=== PATIENT | male | born 1955 | race Caucasian/White ===

== ENCOUNTER 2017-03-07 08:10 | Day surgery (SDC) | payer MEDICARE, BC ==
[2017-03-05 13:47] VITALS: BMI 25.4
[~2017-03-07 08:10] MED LIST: LACTATED RINGERS 1,000 ML IV SCH; LIDOCAINE 1% 20 ML VIAL (10MG/ML) FOR IV START INTRADERMA PRN
[2017-03-07 08:21] VITALS: TEMP 98
[2017-03-07] MEDS ORDERED: LACTATED RINGERS 1,000 ML IV ONE (08:21)
[2017-03-07 08:27] LABS: Glucose,Whole Blood 92 mg/dL (75-99)
[2017-03-07] MEDS ORDERED: PROPOFOL 10 MG/ML 20 ML VIAL IV ONE (09:00)
--- NOTE | 2017-03-07 09:22 | P.PCN ---
Date of Procedure: 03/07/17 Procedure(s) Performed: BRIEF HISTORY: Patient is a 61-year-old pleasant white male, scheduled for an elective colonoscopy as a part of evaluation of chronic diarrhea for the last 8 months duration. He has bowel movements between 3-4 a day which are loose to watery in consistency. He denies any blood or mucus in the stool. PROCEDURE PERFORMED: Colonoscopy with biopsy. PREOPERATIVE DIAGNOSIS: Chronic diarrhea. IV sedation per Anesthesia. PROCEDURE: After informed consent was obtained, the patient, was brought into the endoscopy unit. IV sedation was administered by Anesthesia under continuous monitoring. Digital rectal examination was normal. Initially the Olympus CF- 160 flexible video colonoscope was then inserted in the rectum, gradually advanced into the cecum without any difficulty. Careful examination was performed as the scope was gradually being withdrawn. Ileocecal valve and the appendiceal orifice were visualized and appeared normal. Prep was excellent. Mucosa of the cecum, ascending colon, transverse colon, appeared normal. In the hepatic flexure there was a 5 mm polyp that was removed by biopsy. The rest of the descending colon, sigmoid colon, and rectum appeared normal. Random biopsies were done from the ascending and descending colon to rule out Preston scopic/collagenous colitis. Scattered sigmoid diverticulosis seen. Retroflexion was performed in the rectum and small internal hemorrhoids were seen. The patient tolerated the procedure well. IMPRESSION: 5 mm hepatic flexure polyp status post removal by biopsy. Scattered sigmoid diverticulosis. Small internal hemorrhoids RECOMMENDATIONS: Findings of this examination were discussed with the patient as well as his family. He was advised to follow with the biopsy results. He can have a repeat colonoscopy in 5 years. In the meantime he was advised to use [id number] Imodium as needed.
[2017-03-07 09:55] VITALS: BP 100/65; PULSE 67; RESP 18
== END 2017-03-07 10:11 | disposition home or self-care (01) ==
LOC: ORWHC2ENDO 08:10
PROVIDERS: ATTEND Internal Medicine Gastroenterology
DX: D12.3 Benign neoplasm of transverse colon (principal); R19.7 Diarrhea, unspecified; K57.30 Diverticulosis of large intestine without perforation or abscess without bleeding; K64.8 Other hemorrhoids; I10 Essential (primary) hypertension; E78.5 Hyperlipidemia, unspecified; I48.91 Unspecified atrial fibrillation; E11.9 Type 2 diabetes mellitus without complications; Z79.02 Long term (current) use of antithrombotics/antiplatelets; Z79.899 Other long term (current) drug therapy; Z79.84 Long term (current) use of oral hypoglycemic drugs
CPT/HCPCS: 45380; 88305; J2704

== ENCOUNTER 2017-03-28 08:31 | Day surgery (SDC) | payer MEDICARE, BC ==
[2017-03-23 11:01] VITALS: BMI 26.4
[~2017-03-28 08:31] MED LIST changes: +DEXAMETHASONE SOD PHOSPHATE 10 MG/ML 1 ML VIAL IV ONE; +DEXAMETHASONE SOD PHOSPHATE 4 MG/ML 1 ML VIAL IV ONE; +FAMOTIDINE 20 MG/2 ML VIAL IV ONE; +HYDROmorphone 0.5 MG/0.5 ML SYRINGE IVP PRN; -LIDOCAINE 1% 20 ML VIAL (10MG/ML) FOR IV START INTRADERMA PRN; +ONDANSETRON 4 MG/2 ML VIAL IVP ONE; +ceFAZolin 1,000 MG in DEXTROSE/WATER 1 50ML.BAG IV ONE
[2017-03-28] MEDS: OXYMETAZOLINE 0.05% NASL SPRAY 1 SPRAY BOTTLE NASAL ONE ×5 (09:37→09:59)
[2017-03-28 09:48] LABS: Glucose,Whole Blood 81 mg/dL (75-99)
[2017-03-28] MEDS: LACTATED RINGERS 1,000 ML IV SCH ×2 (09:55→10:34)
[2017-03-28] MEDS ORDERED: LIDOCAINE 1% 20 ML VIAL (10MG/ML) FOR IV START INTRADERMA ONE (09:55)
[2017-03-28] MEDS ORDERED: ONDANSETRON 4 MG/2 ML VIAL IVP ONE (10:09)
[2017-03-28] MEDS ORDERED: KETOROLAC 30 MG/ML 1 ML VIAL ONE (10:34)
[2017-03-28] MEDS ORDERED: SUCCINYLCHOLINE CHLORIDE 100 MG/5 ML SYR IV ONE (10:34)
[2017-03-28] MEDS ORDERED: PROPOFOL 10 MG/ML 20 ML VIAL IV ONE (10:34)
[2017-03-28] MEDS ORDERED: LIDOCAINE 1% INJ 10MG/ML (20 ML MDV) ONE (10:34)
[2017-03-28] MEDS ORDERED: fentaNYL (PF) 50 MCG/ML 2 ML AMP ONE (10:34)
[2017-03-28] MEDS ORDERED: MIDAZOLAM 2 MG/2 ML VIAL ONE (10:34)
[2017-03-28] MEDS ORDERED: LIDOCAINE 2%-EPI 1:100,000 20 ML VIAL SQ ONE ×2 (10:51)
[2017-03-28] MEDS ORDERED: BACITRACIN 500 UNIT/GM OINT 28.4 GM TUBE TOPICAL ONE (11:04)
--- NOTE | 2017-03-28 11:09 | P.OP ---
Date of Procedure: 03/28/17 Preoperative Diagnosis: Deviated nasal septum Inferior turbinate hypertrophy Postoperative Diagnosis: Same Procedure(s) Performed: Septoplasty Inferior turbinoplasty Anesthesia: KTA Surgeon: Ricardo Shelton Estimated Blood Loss (ml): 5 Pathology: other (nasal septal bone and cartilage) Condition: stable Disposition: PACU Indications for Procedure: This is a 61-year-old white male with chronic nasal airway obstruction and congestion Operative Findings: Nasal septum deviated to the right anteriorly and to the left posteriorly with inferior turbinate hypertrophy bilateral Description of Procedure: The patient was brought in the operative suite and placed in a supine position. The patient underwent induction of general anesthesia with oral endotracheal intubation without difficulty. The patient was prepped and draped in usual aseptic fashion. Lidocaine with 1-100,000 epinephrine was infused submucosally both sides nasal septum. While this was taking vasoconstrictive effect the inferior turbinates were infractured with Hooker elevator partial submucous resection inferior turbinates performed with the Coblation wand therefore ablating a portion of the submucosal soft tissue and then outfractured with the Hooker elevator. A left hemitransfixion incision was made with the mucoperichondrial mucoperiosteal flap on the left elevated. The bony cartilaginous junction was disarticulated and the mucoperiosteal flap on the right was elevated. Bony nasal septal deformities were removed Cally forceps. An inferior cartilaginous strip was removed leaving a full 1.5 cm caudal strut. Checking intranasally this corrected nasoseptal deformities and the hemitransfixion incision was closed running 4-0 chromic suture. Bilateral Pacheco airway splints coated bacitracin ointment were placed in nasal cavities and sutured trans- septally with a 4-0 Vicryl suture. Patient was suctioned in oral gastric fashion. The patient was allowed to emerge from general anesthesia having tolerated procedure well was excised in the operating suite and transferred to postop recovery area in satisfactory condition.
[2017-03-28 11:20] VITALS: TEMP 98
[2017-03-28 11:26] LABS: Glucose,Whole Blood 138 mg/dL (75-99)
[2017-03-28 11:31] VITALS: RESP 16
[2017-03-28] MEDS ORDERED: HYDROcodone/APAP 7.5-325MG 1 EACH TAB PO ONE (12:43)
[2017-03-28 13:31] VITALS: BP 155/82; PULSE 66
== END 2017-03-28 13:56 | disposition home or self-care (01) ==
LOC: OR 08:31
PROVIDERS: ATTEND Otolaryngology
DX: J34.2 Deviated nasal septum (principal); J34.3 Hypertrophy of nasal turbinates; E11.9 Type 2 diabetes mellitus without complications; I10 Essential (primary) hypertension; E78.5 Hyperlipidemia, unspecified; I48.91 Unspecified atrial fibrillation; K21.9 Gastro-esophageal reflux disease without esophagitis; Z79.2 Long term (current) use of antibiotics; Z79.01 Long term (current) use of anticoagulants; Z79.84 Long term (current) use of oral hypoglycemic drugs; Z79.899 Other long term (current) drug therapy; Z79.891 Long term (current) use of opiate analgesic
CPT/HCPCS: 88300; 30520; 30140; J2250; J1100; J2405; J2001; J3010; J1885; J0690; J0330; J2704

== ENCOUNTER → 2017-09-14 | Outpatient (CLI) | payer MEDICARE, BC ==
--- NOTE | 2017-09-15 14:18 | XR ---
EXAMINATION TYPE: XR chest 2V DATE OF EXAM: 09/14/2017 COMPARISON: 08/08/2011 HISTORY: 62-year-old male with chest pain TECHNIQUE: Frontal and lateral views FINDINGS: The cardiomediastinal silhouette, aorta, and pulmonary vasculature are within normal limits. Lungs an d pleural spaces are clear. IMPRESSION: No acute cardiopulmonary process.
== END | disposition home or self-care (01) ==
LOC: RADXRMAIN 15:53
PROVIDERS: ATTEND Family Medicine
DX: R07.9 Chest pain, unspecified (principal)
CPT/HCPCS: 71046

== ENCOUNTER → 2017-11-01 | Outpatient (CLI) | payer MEDICARE, BC ==
--- NOTE | 2017-11-01 14:10 | CT ---
EXAMINATION TYPE: CT brain w con DATE OF EXAM: 11/01/2017 COMPARISON: MRI brain September 04, 2014 HISTORY: Right sided tingling with shooting pains CT DLP: 1308 mGycm Automated exposure control for dose reduction was used. CONTRAST: CT scan of the head is performed with IV Contrast, patient injected with 100 mL of Isovue 300. FINDINGS: There is no abnormal enhancing mass or midline shift identified. The ventricles and sulci are within normal limits in size for patient's age. The globes are intact and the visualized sinuses are clear . IMPRESSION: No significant finding is seen to account for patient's symptoms.
--- NOTE | 2017-11-01 14:14 | CT ---
EXAMINATION TYPE: CT chest w con DATE OF EXAM: 11/01/2017 COMPARISON: NONE HISTORY: Left sided chest pain with cough CT DLP: 1127 mGycm. Automated Exposure Control for Dose Reduction was Utilized. TECHNIQUE: CT scan of the thorax is performed following with IV Contrast, patient injected with 100 mL of Isovue 300. FINDINGS: LUNGS: The lungs are grossly clear, there is no concerning parenchymal mass or nodule identified. T here is no pleural effusion or pneumothorax seen. The tracheobronchial tree is patent. MEDIASTINUM: There are no greater than 1 cm hilar or mediastinal lymph nodes. No pericardial effusi on is seen. Opacification of the central pulmonary artery does not demonstrate evidence of filling de fect to suggest central pulmonary embolus. Gmam-fv-cavkviki coronary calcifications are noted. OTHER: In addition to bilateral thickening and nodularity of the adrenal gland suggesting underlying adrenal gland hyperplasia there is a left-sided 2.0 cm adrenal gland nodule that is low-density and f itting of criteria for a benign lipid rich adenoma. Too small to accurately characterize right upper pole renal lesion measures approximately 5 to 6 mm and is partially visualized. IMPRESSION: 1. No focal consolidation, pleural effusion or pneumothorax. 2. Mild to moderate three-vessel coronary artery calcifications, a marker of coronary artery disease. 3. Benign left lipid rich adenoma and findings suggesting bilateral adrenal gland hyperplasia.
== END | disposition home or self-care (01) ==
LOC: RADCTMAIN 12:58
PROVIDERS: ATTEND Family Medicine
DX: I25.10 Atherosclerotic heart disease of native coronary artery without angina pectoris (principal); I69.011 Memory deficit following nontraumatic subarachnoid hemorrhage
CPT/HCPCS: 70460; 71260; Q9967

== ENCOUNTER → 2017-12-07 | Outpatient (CLI) | payer MEDICARE, BC ==
--- NOTE | 2017-12-11 10:56 | P.ARTDOP ---
Arterial Doppler LOWER EXTREMITY ARTERIAL DOPPLER: DATE OF SERVICE: 12/07/2017 Reason for study: Right leg pain. Doppler waveforms: Multiphasic bilaterally throughout. Pulse volume recording: []. Pressure gradients: None Ankle-brachial indices: Greater than 1 Toe pressures: [] on the right, [] on the left Impression: Normal study
== END | disposition home or self-care (01) ==
LOC: RADUSWWP 12:51
PROVIDERS: ATTEND Family Medicine
DX: I70.213 Atherosclerosis of native arteries of extremities with intermittent claudication, bilateral legs (principal)
CPT/HCPCS: 93922

== ENCOUNTER → 2019-02-22 | Outpatient (CLI) | payer MEDICARE, BC ==
[2019-02-22 11:55] LABS: Basophils # (A) 0.1 k/uL (0-0.2); Basophils % (A) 1 %; Eosinophils # (A) 0.3 k/uL (0-0.7); Eosinophils % (A) 4 %; HCT 48.3 % (39.0-53.0); HGB 16.1 gm/dL (13.0-17.5); Lymphocytes % (A) 23 %; MCH 30.9 pg (25.0-35.0); MCHC 33.3 g/dL (31.0-37.0); MCV 92.9 fL (80.0-100.0); Mean Platelet Volume 7.6; Monocytes # (A) 0.6 k/uL (0-1.0); Monocytes % (A) 7 %; Neutrophils # (A) 5.5 k/uL (1.3-7.7); Neutrophils % (A) 63 %; Platelet Count 262 k/uL (150-450); RDW 13.5 % (11.5-15.5); WBC 8.8 k/uL (3.8-10.6)
[2019-02-22 16:26] LABS: African American GFR (CKD) 105.7 (60.0-200.0); Albumin 4.5 g/dL (3.80-4.90); Albumin/Globulin Ratio 2.05 (1.60-3.17); Anion Gap 11.8 mmol/L (4.00-12.00); BUN/Creat Ratio 18.89 Ratio (12.00-20.00); Calcium 9.2 mg/dL (8.7-10.3); Carbon Dioxide 21.2 mmol/L (21.6-31.8); Chol/HDL Ratio 3.91; Globulin 2.2 g/dL (1.6-3.3); LDL Cholesterol,Calculated 74.2 mg/dL (0.0-131.0); Non-African American GFR(CKD) 91.2 (60.0-200.0); Potassium 4.1 mmol/L (3.5-5.5); Total Bilirubin 0.9 mg/dL (0.3-1.2); Total Protein 6.7 g/dL (6.2-8.2); VLDL Calculation 21.8 mg/dL (5.00-40.00)
[2019-02-22 17:37] LABS: Hemoglobin A1C 6.2 % (4.0-6.0)
[2019-02-24 11:47] LABS: Gliadin AB IgA, Deaminated NEGATIVE (NEGATIVE); Gliadin AB IgA, Unit 0.9 U/mL; Gliadin AB IgG, Deaminated NEGATIVE (NEGATIVE)
== END | disposition home or self-care (01) ==
LOC: LABWHC1 11:18
PROVIDERS: ATTEND Family Medicine
DX: I10 Essential (primary) hypertension (principal); E11.9 Type 2 diabetes mellitus without complications; F41.1 Generalized anxiety disorder; I48.91 Unspecified atrial fibrillation
CPT/HCPCS: 36415; 80053; 80061; 83036; 83516; 84443; 85025; 87045; 87046

== ENCOUNTER 2019-04-16 07:42 | Day surgery (SDC) | payer MEDICARE, BC ==
[2019-03-31 12:16] VITALS: BMI 27.1
[~2019-04-16 07:42] MED LIST changes: -DEXAMETHASONE SOD PHOSPHATE 10 MG/ML 1 ML VIAL IV ONE; -DEXAMETHASONE SOD PHOSPHATE 4 MG/ML 1 ML VIAL IV ONE; -FAMOTIDINE 20 MG/2 ML VIAL IV ONE; -HYDROmorphone 0.5 MG/0.5 ML SYRINGE IVP PRN; -ONDANSETRON 4 MG/2 ML VIAL IVP ONE; -ceFAZolin 1,000 MG in DEXTROSE/WATER 1 50ML.BAG IV ONE
[2019-04-16 08:14] VITALS: TEMP 98.1
[2019-04-16] MEDS ORDERED: LIDOCAINE 1% 20 ML VIAL (10MG/ML) FOR IV START INTRADERMA ONE (08:33)
[2019-04-16] MEDS ORDERED: PROPOFOL 10 MG/ML 20 ML VIAL IV ONE (08:55)
--- NOTE | 2019-04-16 09:11 | P.PCN ---
Date of Procedure: 04/16/19 Procedure(s) Performed: BRIEF HISTORY: Patient is a 63-year-old pleasant male scheduled for an elective colonoscopy as a part of value should of chronic diarrhea for the last 6 months duration. He has bowel movements anywhere from 5-6 a day which are loose to watery in consistency. Denies any rectal bleeding. PROCEDURE PERFORMED: Colonoscopy with biopsy. PREOPERATIVE DIAGNOSIS: Chronic diarrhea. IV sedation per Anesthesia. PROCEDURE: After informed consent was obtained, the patient, was brought into the endoscopy unit. IV sedation was administered by Anesthesia under continuous monitoring. Digital rectal examination was normal. Initially the Olympus CF-160 flexible video colonoscope was then inserted in the rectum, gradually advanced into the cecum without any difficulty. Careful examination was performed as the scope was gradually being withdrawn. Ileocecal valve and the appendiceal orifice were visualized and appeared normal. Prep was excellent. Mucosa of the cecum, ascending colon, transverse colon, descending colon, sigmoid colon, and rectum appeared normal. Random biopsies were done from ascending and descending colon to rule out metastatic/collagenous colitis Retroflexion was performed in the rectum and small internal hemorrhoids were seen. The patient tolerated the pro cedure well. IMPRESSION: Normal-appearing colon from rectum to cecum with no evidence of colorectal neoplasia . Small internal hemorrhoids. RECOMMENDATIONS: Findings of this examination were discussed with the patient as well as his family. He was advised to follow with the biopsy results. In the meantime he was advised to use [id number] Imodium as needed for the chronic diarrhea..
[2019-04-16 09:32] VITALS: BP 124/79; PULSE 61; RESP 18
== END 2019-04-16 10:02 | disposition home or self-care (01) ==
LOC: ORWHC2ENDO 07:42
PROVIDERS: ATTEND Internal Medicine Gastroenterology
DX: K52.9 Noninfective gastroenteritis and colitis, unspecified (principal); K64.8 Other hemorrhoids; I10 Essential (primary) hypertension; E78.5 Hyperlipidemia, unspecified; I48.91 Unspecified atrial fibrillation; E11.9 Type 2 diabetes mellitus without complications; K21.9 Gastro-esophageal reflux disease without esophagitis; Z79.01 Long term (current) use of anticoagulants; Z79.84 Long term (current) use of oral hypoglycemic drugs; Z79.899 Other long term (current) drug therapy; Z79.891 Long term (current) use of opiate analgesic; Z88.1 Allergy status to other antibiotic agents; Z88.0 Allergy status to penicillin
CPT/HCPCS: 88305; 45380; J2704

== ENCOUNTER 2019-11-25 13:11 | Observation (INO) | payer MEDICARE, BC ==
--- NOTE | 2019-11-25 13:35 | ED ---
Chest Pain HPI - General Chief Complaint: Chest Pain Stated Complaint: Chest Pain Time Seen by Provider: 11/25/19 13:15 Source: patient, RN notes reviewed Mode of arrival: wheelchair Limitations: no limitations - History of Present Illness Initial Comments: This is a 64-year-old male with a history of atrial fibrillation who is on blood thinners who presents with complaints of complaints of intermittent episodes of chest pain over last 6 days. He points to his left midsternal area states it radiates at times to his left shoulder and forearm. She also states over last week he believes his A. fib his been acting up. When he has the pain is about 5/10 severity he states currently it's 0. He does state that at times it does radiate to his back. No associated nausea vomiting fevers chills sweats or other symptoms. Other than the atrial fibrillation denies any history of heart attacks. He states there is a family history however. MD Complaint: chest pain - Related Data Home Medications Medication Instructions Recorded Confirmed Carisoprodol [Soma] 350 mg PO BID PRN 09/04/14 11/25/19 Glimepiride [Amaryl] 4 mg PO BID 09/04/14 11/25/19 Lisinopril-Hctz 20-12.5 mg 1 tab PO BID 09/04/14 11/25/19 [Zestoretic 20-12.5] Rosuvastatin Calcium [Crestor] 10 mg PO HS 09/04/14 11/25/19 oxyCODONE HCL/ACETAMINOPHEN 1 tab PO TID PRN 09/04/14 11/25/19 [Percocet 7.5-325 mg] ALPRAZolam [Xanax] 0.5 mg PO DAILY PRN 03/05/17 11/25/19 Apixaban [Eliquis] 5 mg PO BID 03/05/17 11/25/19 Metoprolol Succinate (ER) [Toprol 50 mg PO BID 03/05/17 11/25/19 Xl] Pantoprazole Sodium [Protonix] 40 mg PO DAILY 03/05/17 11/25/19 Tadalafil [Cialis] 5 mg PO DAILY 03/23/17 11/25/19 Allergies Allergy/AdvReac Type Severity Reaction Status Date / Time amoxicillin [From Augmentin] Allergy Severe Abdominal Verified 11/25/19 14:05 Pain clavulanic acid Allergy Severe Abdominal Verified 11/25/19 14:05 [From Augmentin] Pain levofloxacin [From Levaquin] Allergy Severe Abdominal Verified 11/25/19 14:05 Pain Review of Systems ROS Statement: Those systems with pertinent positive or pertinent negative responses have been documented in the HPI. ROS Other: All systems not noted in ROS Statement are negative. EKG Findings - EKG Results: EKG: interpreted by ERMD EKG shows: ventricular fibrillation (Atrial fibrillation rate of 102 QRS 86 QT since QTC 3:30/440 low-voltage QRS nonspecific septal changes) Past Medical History Past Medical History: Atrial Fibrillation, Asthma, Diabetes Mellitus, GERD/Reflux, GI Bleed, Hyperlipidemia, Hypertension, Musculoskeletal Disorder, Sleep Apnea/CPAP/BIPAP Additional Past Medical History / Comment(s): OCC RT SIDE facial numbness (states from nerve in neck). RT CTS. Low back & neck pain. Colonoscopy w/ polyps removed rectal bleeding afterwards requiring ICU stay, 2 U PRBCs. , NO TX FOR SLEEP APNEA., HERNIATED DISC-CANT WALK DISTANCE., STATES LOOSE STOOLS FOR 8 MONTHS. History of Any Multi-Drug Resistant Organisms: None Reported Past Surgical History: Orthopedic Surgery Additional Past Surgical History / Comment(s): Cervical Fusion. LT CTR. Colonoscopies, EGD, DEVIATED SEPTUM SURGERY. RT INDEX FINGER TRIGGER RELEASE Past Anesthesia/Blood Transfusion Reactions: No Reported Reaction Additional Past Anesthesia/Blood Transfusion Reaction / Comment(s): CLAUSTROPHOBIC Past Psychological History: Anxiety Smoking Status: Former smoker - Past Family History Father Family Medical History: Coronary Artery Disease (CAD), Diabetes Mellitus Additional Family Medical History / Comment(s): Father of an allergic reaction to ABX. Mother Family Medical History: Cancer, Coronary Artery Disease (CAD), Diabetes Mellitus, Deep Vein Thrombosis (DVT), Myocardial Infarction (MS) Additional Family Medical History / Comment(s): Mother had quad bypass. POSS DVT General Exam - General Exam Comments Initial Comments: This is a well-developed well-nourished awake alert oriented times 3 male Limitations: no limitations General appearance: alert, in no apparent distress Head exam: Present: atraumatic, normocephalic, normal inspection Eye exam: Present: normal appearance, PERRL, EOMI. Absent: scleral icterus, conjunctival injection, periorbital swelling ENT exam: Present: normal exam, mucous membranes moist Neck exam: Present: normal inspection, full ROM, other (No stridor JVD or bruits). Absent: tenderness, meningismus, lymphadenopathy Respiratory exam: Present: normal lung sounds bilaterally. Absent: respiratory distress, wheezes, rales, rhonchi, stridor Cardiovascular Exam: Present: tachycardia, irregular rhythm. Absent: systolic murmur, diastolic murmur, rubs, gallop, clicks GI/Abdominal exam: Present: soft, normal bowel sounds. Absent: distended, tenderness, guarding, rebound, rigid Extremities exam: Present: normal inspection, full ROM, normal capillary refill. Absent: tenderness, pedal edema, joint swelling, calf tenderness Back exam: Present: normal inspection Neurological exam: Present: alert, oriented X3, CN II-XII intact Psychiatric exam: Present: normal affect, normal mood Skin exam: Present: warm, dry, intact, normal color. Absent: rash Course Vital Signs 11/25/19 13:13 Temperature 97.9 F Pulse Rate 111 H Respiratory 18 Rate Blood Pressure 138/87 O2 Sat by Pulse 99 Oximetry Chest Pain MDM - MDM I did review the imaging and report no acute findings. The case was discussed with the patient as well as with Dr. Aguirre patient will be admitted with cardiology consultation. Currently is pain-free. Disposition Clinical Impression: Chest pain, Acute coronary syndrome Disposition: ADMITTED IP TO THIS HOSP Condition: Fair Referrals: Garrett Aguirre MD [Primary Care Provider] - 1-2 days
[2019-11-25 13:54] LABS: Basophils # (A) 0.1 k/uL (0-0.2); Basophils % (A) 1 %; Eosinophils # (A) 0.6 k/uL (0-0.7); Eosinophils % (A) 6 %; HCT 47.5 % (39.0-53.0); HGB 15.6 gm/dL (13.0-17.5); Lymphocytes # (A) 2.8 k/uL (1.0-4.8); Lymphocytes % (A) 29 %; MCH 29.9 pg (25.0-35.0); MCHC 32.7 g/dL (31.0-37.0); MCV 91.3 fL (80.0-100.0); Mean Platelet Volume 8.4; Monocytes # (A) 0.7 k/uL (0-1.0); Monocytes % (A) 7 %; Neutrophils # (A) 5.2 k/uL (1.3-7.7); Neutrophils % (A) 55 %; Platelet Count 269 k/uL (150-450); RBC 5.21 m/uL (4.30-5.90); RDW 13.6 % (11.5-15.5); WBC 9.6 k/uL (3.8-10.6)
--- NOTE | 2019-11-25 13:56 | XR ---
EXAMINATION TYPE: XR chest 2V DATE OF EXAM: 11/25/2019 COMPARISON: 09/14/2017 TECHNIQUE: PA and lateral views submitted. HISTORY: Chest pain FINDINGS: The lungs are clear and there is no pneumothorax, pleural effusion, or focal pneumonia. Arthropathy of the shoulders. Postsurgical change overlying the cervical spine. No overt failure. Hyperinflation suggests COPD. Hypertrophic and degenerative change of the spine. IMPRESSION: 1. Correlate for COPD.
[2019-11-25 14:03] LABS: ALT 28 U/L (4-49); AST 26 U/L (17-59); African American GFR (CKD) >90 (>60 ml/min/1.73 sqM); Albumin 4.4 g/dL (3.5-5.0); Alkaline Phosphatase 64 U/L (38-126); Anion Gap 8 mmol/L; Blood Urea Nitrogen 19 mg/dL (9-20); Calcium 9.2 mg/dL (8.4-10.2); Carbon Dioxide 23 mmol/L (22-30); Chloride 105 mmol/L (98-107); Creatine Kinase 182 U/L (55-170); Glucose 196 mg/dL (74-99); Magnesium 2.1 mg/dL (1.6-2.3); Non-African American GFR(CKD) >90 (>60 ml/min/1.73 sqM); Partial Thromboplastin Time 23.3 sec (22.0-30.0); Potassium 4.4 mmol/L (3.5-5.1); Prothrombin Time 10.2 sec (9.0-12.0); Sodium 136 mmol/L (137-145); Total Bilirubin 0.8 mg/dL (0.2-1.3); Total Protein 7.2 g/dL (6.3-8.2)
[2019-11-25] MEDS ORDERED: NITROGLYCERIN SL TABS 0.4 MG TAB SUBLINGUAL PRN (16:27)
[2019-11-25] MEDS ORDERED: oxyCODONE-APAP 7.5-325MG 1 EACH TAB PO PRN (16:28)
[2019-11-25] MEDS ORDERED: ALPRAZolam 0.5 MG TAB PO PRN (16:28)
[2019-11-25] MEDS ORDERED: RX INFO: IV CONTRAST WAS GIVEN 1 EACH MISC MISCELLANE PRN (17:33)
--- NOTE | 2019-11-25 18:12 | HP ---
HISTORY AND PHYSICAL This patient is a 64-year-old male with history of atrial fibrillation, on blood thinners, complaining of intermittent episodes of chest pain over the last 6 days, left midsternal area, radiates to his left shoulder and forearm. atrial fibrillation has been there, he was put on heparin, about 5/10 in severity. At times it does radiate to his back. No history of nausea, vomiting or other COVID symptoms or fevers, chills. No heart attacks. No family history of heart disease. HOME MEDICINES: 1. Soma 350 q.12 hours p.r.n. 2. Amaryl 4 mg b.i.d. 3. Zestoretic 03/01.5 one b.i.d. 4. Crestor 10 mg daily. 5. Percocet 7.5 t.i.d. 6. Xanax 0.5 daily p.r.n. 7. Eliquis 5 mg b.i.d. 8. Toprol-XL 50 b.i.d. 9. Pantoprazole 40 mg daily. 10.Cialis 5 mg daily. ALLERGIES: AMOXICILLIN, AUGMENTIN, LEVAQUIN. REVIEW OF SYSTEMS: Fourteen-point review of systems negative except for mentioned in HPI. EKG shows ventricular fibrillation. PAST MEDICAL HISTORY: Atrial fibrillation, asthma, diabetes mellitus, GERD, GI bleed, hypertension, dyslipidemia, sleep apnea, low back and neck pain, carpal tunnel colonoscopy, herniated disc. Loose stools for 8 months. History of anxiety. Former smoker. FAMILY HISTORY: Father with coronary artery disease, diabetes mellitus. Mother with coronary artery disease, diabetes mellitus, DVT, myocardial infarction. PHYSICAL EXAMINATION: Well-developed, well-nourished male. HEAD: Normocephalic, atraumatic. Pupils equal, round, reactive. LUNGS: Transmitted upper airway sounds. Scattered wheeze. CARDIOVASCULAR: S1, S2. GI: Soft. Normal bowel sounds. EXTREMITIES: No cyanosis, clubbing, edema. VITAL SIGNS: Temperature 97.9, pulse 111, respiratory rate 18-20, blood pressure 130s over 80s, oxygen 99%. ASSESSMENT: 1. Atypical chest pain. 2. Acute coronary syndrome. 3. Chronic obstructive pulmonary disease, possibly exacerbation. Possibly give steroids. Do a CT scan of his chest; if positive, D-dimer. Give updraft treatments. MMODL / IJN: [id number] /
--- NOTE | 2019-11-25 18:18 | CT ---
EXAMINATION TYPE: CT chest w con DATE OF EXAM: 11/25/2019 COMPARISON: 11/01/2017 HISTORY: Chest pain. CT DLP: 486.9 mGycm Automated exposure control for dose reduction was used. CONTRAST: Performed with IV Contrast, patient injected with 100ml mL of Isovue 300. Images are obtained from the thoracic inlet to the diaphragm with IV contrast. The lungs are clear of infiltrate. There is no pleural effusion or pneumothorax. There is 2 cm cortic al cyst posterior right kidney. There is no adrenal mass. There is bilateral adrenal hypertrophy. Upp er abdominal soft tissues are intact. Heart size is normal. There is no pericardial effusion. There are no hilar masses. There is no mediastinal adenopathy. Thoracic aorta shows mild atheromatous change. Bony thorax is intact. Sternum is intact. The ribs appear intact there is no evidence of a p ulmonary mass. IMPRESSION: Negative CT scan of the chest. No adverse change compared to old exam.
[2019-11-25] MEDS: METOPROLOL SUCCINATE (ER) 50 MG TAB.ER.24H PO SCH (21:50)
[2019-11-25] MEDS: ATORVASTATIN 20 MG TAB PO SCH (21:50)
[2019-11-25] MEDS: APIXABAN 5 MG TAB PO SCH (21:50)
[2019-11-25 21:56] LABS: Glucose,Whole Blood 180 mg/dL (75-99)
[2019-11-25] MEDS: LISINOPRIL-HCTZ 20-12.5 MG 1 EACH TAB PO SCH (21:59)
[2019-11-25] MEDS: INSULIN ASPART (NovoLOG) 100 UNIT/ML VIAL SQ SCH (22:01)
[2019-11-26 05:16] LABS: Hemoglobin A1C 6.5 % (4.0-6.0)
[2019-11-26 06:22] LABS: Glucose,Whole Blood 119 mg/dL (75-99)
[2019-11-26 06:45] LABS: Cholesterol 143 mg/dL (<200); HDL Cholesterol 32 mg/dL (40-60); LDL Cholesterol,Calculated 79 mg/dL (0-99); Triglycerides 160 mg/dL (<150)
[2019-11-26] MEDS: INSULIN ASPART (NovoLOG) 100 UNIT/ML VIAL SQ SCH ×4 (07:27→21:12)
[2019-11-26] MEDS ORDERED: SODIUM CHLORIDE 0.9% IV ONE ×2 (07:37→09:00)
[2019-11-26] MEDS ORDERED: AMINOPHYLLINE 500 MG/20 ML VIAL IV PRN ×2 (07:37→09:26)
[2019-11-26] MEDS ORDERED: CAFFEINE CITRATE 60 MG/3 ML VIAL IV PRN ×2 (07:37→09:26)
[2019-11-26] MEDS ORDERED: DIPYRIDAMOLE IV ONE ×2 (07:37→09:00)
[2019-11-26] MEDS: PANTOPRAZOLE 40 MG TABLET PO SCH (08:41)
[2019-11-26] MEDS: APIXABAN 5 MG TAB PO SCH ×2 (08:41→21:12)
[2019-11-26] MEDS: LISINOPRIL-HCTZ 20-12.5 MG 1 EACH TAB PO SCH ×2 (08:41→21:12)
[2019-11-26] MEDS ORDERED: ASPIRIN 325 MG TAB PO SCH ×2 (09:00)
[2019-11-26] MEDS ORDERED: REGADENOSON 0.4 MG/5 ML SYRINGE IV ONE ×2 (09:26→12:40)
--- NOTE | 2019-11-26 10:51 | CONS ---
CONSULTATION Mr. Keenan is a 64-year-old male with a history of chronic persistent atrial fibrillation, history of hyperlipidemia, history of hypertension, diabetes who presented with episode of chest discomfort. The discomfort has been going on and off for a few days, not activity related and short lasting, at times radiating to the left shoulder. He has mild dyspnea on exertion, but no significant changes. He has no dizziness. He feels palpitation and he feels he has atrial fibrillation more frequently now. He has no syncope. No PND, orthopnea, or peripheral edema. He has been followed by a auditor in charge in [place] for his atrial fibrillation, this has been going on for the last few years. He apparently is in persistent atrial fibrillation. He has no documented history of obstructive coronary artery disease. His coronary risk factors are remarkable for hypertension, hyperlipidemia, and diabetes. He is nonsmoker of tobacco. He smokes marijuana. MEDICATIONS: Include Percocet, Crestor 10 mg daily, Eliquis 5 mg twice a day, Xanax, Soma, Toprol-XL 50 mg twice a day, Zestoretic 20-12.5 mg twice a day, Amaryl 4 mg twice a day, Cialis and Protonix 40 mg daily. REVIEW OF SYSTEMS: RESPIRATORY SYSTEM he has no documented history of asthma, emphysema or recent wheezing. GI SYSTEM: No recent GI bleeding, no peptic disease. SYSTEM: No dysuria or hematuria. NERVOUS SYSTEM: No stroke or seizure. PHYSICAL EXAMINATION: A 64-year-old male, alert, oriented, in no apparent distress. Blood pressure 105/80 with a heart in 90s, afebrile. HEAD: Normocephalic. EYES: Sclerae nonicteric. NECK: Good upstroke, no bruit, no jugular venous distention. LUNGS: Clear to auscultation. HEART: Irregular, regular, S1, S2. No S3. No S4. No rub. ABDOMEN: Soft, nontender, positive bowel sounds, no organomegaly. EXTREMITIES: No edema, intact pulses. LAB DATA: Revealed troponin less than 0.012 for 3 samples. NT proBNP is 359. Cholesterol 143, LDL of 79. His BUN and creatinine 19 and 0.85. Hemoglobin A1c of 6.5, hemoglobin of 15.6, potassium 4.4. EKG revealed atrial fibrillation with nonspecific ST-T wave changes and poor R-wave progression. Chest CT showed no evidence of pulmonary embolism. Chest x-ray shows no acute infiltrate. IMPRESSION: 1. Chest discomfort of unclear etiology, has some atypical features for ischemic heart disease, probably noncardiac in a patient with multiple risk factors. 2. Chronic persistent atrial fibrillation. 3. Hypertension. 4. Hyperlipidemia. 5. Diabetes mellitus. RECOMMENDATION: I would recommend to obtain an echocardiogram with Doppler to evaluate his left ventricular systolic function. Also obtain a myocardial perfusion imaging and depending on the results of testing, further recommendation will be made. Thank you for this consult. Will follow with you. CHRISTOPHERL / IJN: [id number] /
[2019-11-26] MEDS: METOPROLOL SUCCINATE (ER) 50 MG TAB.ER.24H PO SCH ×2 (13:17→21:12)
[2019-11-26] MEDS: ASPIRIN 81 MG PO SCH (13:17)
[2019-11-26 13:29] LABS: Glucose,Whole Blood 165 mg/dL (75-99)
[2019-11-26] MEDS ORDERED: METOPROLOL TARTRATE 50 MG TAB PO STA ×2 (14:46→14:50)
[2019-11-26] MEDS ORDERED: DILTIAZEM ORAL 60 MG TAB PO STA ×2 (15:03→16:23)
[2019-11-26 17:05] LABS: Glucose,Whole Blood 147 mg/dL (75-99)
[2019-11-26 20:23] LABS: Glucose,Whole Blood 231 mg/dL (75-99)
[2019-11-26] MEDS: ATORVASTATIN 20 MG TAB PO SCH (21:12)
--- NOTE | 2019-11-26 22:50 | PN ---
PROGRESS NOTE This patient is a white male with atrial fibrillation with rapid ventricular response. CT scan of the chest was normal. He is waiting for stress test report to come back. He had an echo and stress test today. Lexiscan stress test has not been read. Chest CT is negative for any infiltrates or cancer. We have to wait for his stress test to be read and we have to wait for his echo to be read. Hopefully he will be discharged home tomorrow. He has had rapid ventricular response. Blood pressure medicines have been increased for atrial fibrillation with rapid ventricular response. Lungs are clear. CARDIOVASCULAR: S1, S2. HEMATOLOGY: Negative Homans. PSYCH: Fair mood and affect. ASSESSMENT: 1. Atypical chest pain. 2. Atrial fibrillation with rapid ventricular response. Prognosis guarded. Wait for echo and stress test prior to discharge. MMODL / IJN: [id number] /
--- NOTE | 2019-11-27 00:59 | NM ---
EXAMINATION TYPE: NM stress lexiscan cardiolite DATE OF EXAM: 11/26/2019 COMPARISON: NONE HISTORY: TECHNIQUE: After the intravenous administration of 9.5 mCi Tc 99m Sestamibi - Cardiolite resting SPE CT images acquired 45 minutes post injection. The patient received 0.4mg Lexiscan, 24.5 mCi Tc 99m Sestamibi - Stress images obtained [address] injection FINDINGS: Review of stress and rest SPECT images demonstrates no distinct perfusion abnormality. Gated analysi s shows normal wall motion with an estimated left ventricular ejection fraction of %. The left ventricular ejection fraction is 46%. The gated images show dyskinetic inferior wall of the left ventricle near the apex. The intraventricular septum is hypokinetic. Perfusion images show decreased perfusion of the inferior wall and interventricular septum on both in itial and delayed images. I see no sign of reversible ischemia. IMPRESSION: Decreased perfusion inferior wall with irreversible ischemia consistent with some degree of infarct o n the inferior wall and to a lesser extent the interventricular septum. Dyskinetic inferior wall. Lef t ventricular ejection fraction is 46%. No reversible ischemia seen.
[2019-11-27 06:29] LABS: Glucose,Whole Blood 124 mg/dL (75-99)
[2019-11-27] MEDS: INSULIN ASPART (NovoLOG) 100 UNIT/ML VIAL SQ SCH (07:38)
[2019-11-27] MEDS: LISINOPRIL-HCTZ 20-12.5 MG 1 EACH TAB PO SCH (07:42)
[2019-11-27] MEDS: APIXABAN 5 MG TAB PO SCH (07:45)
[2019-11-27] MEDS: ASPIRIN 81 MG PO SCH ×2 (07:45→10:37)
[2019-11-27] MEDS: PANTOPRAZOLE 40 MG TABLET PO SCH (07:45)
[2019-11-27] MEDS: METOPROLOL SUCCINATE (ER) 50 MG TAB.ER.24H PO SCH (07:45)
--- NOTE | 2019-11-27 07:54 | EST ---
EXERCISE STRESS AGE: 64 SEX: Male HT: 5'11" WT: 210 pounds PROTOCOL: Lexiscan Cardiolite STAGE: DURATION OF EXERCISE: HEART RATE REST: 111 BLOOD PRESSURE REST: 131/82 MAXIMUM HEART RATE ACHIEVED: 155 MAXIMUM BLOOD PRESSURE: 131/82 85% MPHR: 133 100% MPHR: 157 METS: INDICATIONS: Chest pain, A-Fib. CLINICAL INFORMATION: Baseline rhythm is atrial fibrillation, rate of 111, normal axis and intervals, nonspecific ST-T wave changes. Baseline blood pressure 131/82 mmHg. Patient received injection of Lexiscan. Electrocardiograph monitoring revealed no evidence of diagnostic ischemic ST deviation. Rare PVCs were noted. Cardiolite was injected per protocol. CONCLUSION: 1. Nondiagnostic electrocardiograph stress testing. 2. Nuclear images will be reported separately. MMODL / IJN: [id number] /
[2019-11-27] MEDS ORDERED: METOPROLOL SUCCINATE (ER) 50 MG TAB.ER.24H PO SCH (09:15)
--- NOTE | 2019-11-27 09:35 | P.PN ---
Subjective This is a pleasant 64-year-old male past medical history significant for chronic persistent atrial fibrillation, dyslipidemia, hypertension and diabetes mellitus. He follows with Dr. Shipley out of [place]. He underwent a Lexiscan stress test yesterday revealing decreased perfusion of the inferior wall with a reversible ischemia consistent with some degree of infarct in the inferior wall with noted inferior wall dyskinesia and ejection fraction of 46% with no reversible ischemia noted. Echocardiogram has been obtained and review ed. Blood pressure 131/89 heart rate 88 afebrile maintaining oxygen saturation on room air. Telemetry tracings indicate he is having frequent episodes of fluctuating heart rate up to 130 bpm. He does describe feeling palpitations and fluttering in his chest. He has no chest pain, shortness of breath or dizziness. GENERAL: Well-appearing, well-nourished and in no acute distress. NECK: Supple without JVD or thyromegaly. LUNGS: Breath sounds clear to auscultation bilaterally. Respiration equal and unlabored. No wheezes, rales or rhonchi. HEART: Irregular rate and rhythm without murmurs, rubs or gallops. S1 and S2 heard. EXTREMITIES: Normal range of motion, no edema. No clubbing or cyanosis. Peripheral pulses intact. ASSESSMENT Chest pain, atypical. An acute coronary event has been ruled out. Negative Lexiscan stress test for reversibility. Chronic persistent atrial fibrillation with fluctuating heart rates Hypertension Dyslipidemia Diabetes mellitus PLAN Increase Toprol to 50 mg 3 times a day. Stable for discharge to follow-up with his primary clinical unit educator in the office. Nurse Practitioner note has been reviewed, I agree with a documented findings and plan of care. Patient was seen and examined. Objective - Vital Signs Vital signs: Vital Signs Temp 97.5 F L 11/27/19 08:00 Pulse 88 11/27/19 08:00 Resp 19 11/27/19 08:00 BP 131/89 11/27/19 08:00 Pulse Ox 97 11/27/19 08:00 Intake & Output 11/26/19 11/27/19 11/27/19 18:59 06:59 18:59 Intake Total 590 Balance 590 Weight 92.99 kg Intake: Oral 590 Other: Voiding Method Toilet Toilet # Voids 2 - Labs CBC & Chem 7: 11/25/19 13:34 11/25/19 13:34 Labs: Abnormal Lab Results - Last 24 Hours (Table) 11/26/19 11/26/19 11/26/19 Range/Units 13:27 17:04 20:22 POC Glucose (mg/dL) 165 H 147 H 231 H (75-99) mg/dL 11/27/19 Range/Units 06:27 POC Glucose (mg/dL) 124 H (75-99) mg/dL
--- NOTE | 2019-11-27 12:00 | ECHOF ---
Referral Reason:CP MEASUREMENTS -------- HEIGHT: 180.3 cm WEIGHT: 93.0 kg BP: 105/85 RVIDd: 2.9 cm (< 3.3) IVSd: 1.4 cm (0.6 - 1.1) LVIDd: 5.2 cm (3.9 - 5.3) LVPWd: 1.3 cm (0.6 - 1.1) IVSs: 1.4 cm LVIDs: 3.4 cm LVPWs: 1.8 cm LA Diam: 3.7 cm (2.7 - 3.8) LAESV Index (A-L): 22.53 ml/m Ao Diam: 3.7 cm (2.0 - 3.7) AV Cusp: 1.8 cm (1.5 - 2.6) MV EXCURSION: 15.618 mm (> 18.000) MV EF SLOPE: 112 mm/s (70 - 150) EPSS: 1.8 cm FINDINGS -------- Atrial fibrillation. This was a technically difficult study with suboptimal views. The left ventricular size is normal. There is moderate concentric left ventricular hypertrophy. T here is moderate global hypokinesis of LV . Overall left ventricular systolic function is mild-mode rately impaired with, an EF between 40 - 45 %. The right ventricle is normal in size. Normal LA size by volume 22+/-6 ml/m2. The right atrial size is normal. 3 ml of Lumason was utilized for enhancement of images. Interatrial and interventricular septum intact. There is mild aortic valve sclerosis. The mitral valve is normal. Mild mitral regurgitation is present. The tricuspid valve appears structurally normal. Mild tricuspid regurgitation present. The pulmonic valve was not well visualized. There is no pulmonic regurgitation present. The aortic root size is normal. Normal inferior vena cava with normal inspiratory collapse consistent with estimated right atrial pre ssure of 5 mmHg. There is no pericardial effusion. CONCLUSIONS -------- 1. There is moderate concentric left ventricular hypertrophy. 2. There is moderate global hypokinesis of LV . 3. Overall left ventricular systolic function is mild-moderately impaired with, an EF between 40 - 45 %. 4. Normal LA size by volume 22+/-6 ml/m2. 5. 3 ml of Lumason was utilized for enhancement of images. 6. There is mild aortic valve sclerosis. 7. Mild mitral regurgitation is present. 8. Mild tricuspid regurgitation present. 9. There is no pericardial effusion. AMPOULE FILLER: Jenn Grace RDCS
[2019-11-27] MEDS ORDERED: METOPROLOL TARTRATE 50 MG TAB PO SCH (13:00)
--- NOTE | 2019-11-27 16:34 | P.DS ---
Providers Date of admission: 11/25/19 16:33 Expected date of discharge: 11/27/19 Attending physician: Garrett Aguirre Consults: 11/25/19 16:27 Consult Physician Urgent Consulting Provider: Lasha Dangelo Consult Reason/Comments: Chest pain Do you want consulting provider notified?: Yes [facility] Course: Final Diagnoses: Acute atypical chest pain, acute coronary event filled out, status post Lexiscan stress test Chronic persistent atrial fibrillation, RVR ,beta teri increased Diabetes mellitus Hypertension Dyslipidemia Hospital course this a 64-year-old gentleman admitted with chest pain, atrial fibrillation and multiple other medical issues. Evaluated by cardiology. Underwent Lexiscan stress test reporting decreased perfusion inferior wall with reversible ischemia consistent with some degree of infarct on the inferior wall and to a lesser extent the interventricular septum , dyskinetic inferior wall, left ventricular EF 46%, no reversible ischemia seen .Uncontrolled atrial fibrillation requiring beta teri to be increased. Significant clinical improvement. Cleared by cardiology for discharge. Patient is being discharged home in a stable condition with guarded prognosis. The impression and plan of care has been dictated as directed. : I performed a history and examination of this patient, discussed the same with the dictator. I agree with the dictator's note ,documented as a scribe. Any additional findings or plans will be noted. Patient Condition at Discharge: Stable Plan - Discharge Summary Discharge Rx Participant: No New Discharge Prescriptions: New Metoprolol Succinate (ER) [Toprol XL] 50 mg PO TID tab.er.24h Continue oxyCODONE HCL/ACETAMINOPHEN [Percocet 7.5-325 mg] 1 tab PO TID PRN PRN Reason: Pain Rosuvastatin Calcium [Crestor] 10 mg PO HS Glimepiride [Amaryl] 4 mg PO BID Carisoprodol [Soma] 350 mg PO BID PRN PRN Reason: Pain Lisinopril-Hctz 20-12.5 mg [Zestoretic 20-12.5] 1 tab PO BID Pantoprazole Sodium [Protonix] 40 mg PO DAILY Apixaban [Eliquis] 5 mg PO BID ALPRAZolam [Xanax] 0.5 mg PO DAILY PRN PRN Reason: Anxiety Discontinued Metoprolol Succinate (ER) [Toprol XL] 50 mg PO BID No Action Tadalafil [Cialis] 5 mg PO DAILY Discharge Medication List Carisoprodol [Soma] 350 mg PO BID PRN 09/04/14 [History] Glimepiride [Amaryl] 4 mg PO BID 09/04/14 [History] Lisinopril-Hctz 20-12.5 mg [Zestoretic 20-12.5] 1 tab PO BID 09/04/14 [History] Rosuvastatin Calcium [Crestor] 10 mg PO HS 09/04/14 [History] oxyCODONE HCL/ACETAMINOPHEN [Percocet 7.5-325 mg] 1 tab PO TID PRN 09/04/14 [History] ALPRAZolam [Xanax] 0.5 mg PO DAILY PRN 03/05/17 [History] Apixaban [Eliquis] 5 mg PO BID 03/05/17 [History] Pantoprazole Sodium [Protonix] 40 mg PO DAILY 03/05/17 [History] Tadalafil [Cialis] 5 mg PO DAILY 03/23/17 [History] Metoprolol Succinate (ER) [Toprol XL] 50 mg PO TID tab.er.24h 11/27/19 [Rx] Follow up Appointment(s)/Referral(s): Garrett Aguirre MD [Primary Care Provider] - 3 Days Renu Richter MD [REFERRING] - 1 Week (pt following up with dr. lowe at 14:30) Discharge Disposition: HOME SELF-CARE
[2019-11-28 08:48] VITALS: BP 131/89; PULSE 88; RESP 19; TEMP 97.5
== END 2019-11-27 10:39 | disposition home or self-care (01) ==
LOC: EC 13:11 → 1SOBS 16:33
PROVIDERS: ADMIT Family Medicine; ATTEND Family Medicine
DX: R07.89 Other chest pain (principal); I48.19 Other persistent atrial fibrillation; J44.9 Chronic obstructive pulmonary disease, unspecified; I10 Essential (primary) hypertension; E78.5 Hyperlipidemia, unspecified; E11.9 Type 2 diabetes mellitus without complications; K21.9 Gastro-esophageal reflux disease without esophagitis; G47.30 Sleep apnea, unspecified; G56.01 Carpal tunnel syndrome, right upper limb; F40.240 Claustrophobia; F41.9 Anxiety disorder, unspecified; M54.2 Cervicalgia; M54.5 Low back pain; F12.90 Cannabis use, unspecified, uncomplicated; Z03.818 Encounter for observation for suspected exposure to other biological agents ruled out; Z79.84 Long term (current) use of oral hypoglycemic drugs; Z79.01 Long term (current) use of anticoagulants; Z79.891 Long term (current) use of opiate analgesic; Z79.899 Other long term (current) drug therapy; Z88.0 Allergy status to penicillin; Z88.1 Allergy status to other antibiotic agents; Z88.8 Allergy status to other drugs, medicaments and biological substances; Z87.19 Personal history of other diseases of the digestive system; Z99.89 Dependence on other enabling machines and devices; Z86.010 Personal history of colon polyps; Z98.1 Arthrodesis status; Z87.891 Personal history of nicotine dependence; Z82.49 Family history of ischemic heart disease and other diseases of the circulatory system; Z83.3 Family history of diabetes mellitus; Z80.9 Family history of malignant neoplasm, unspecified
CPT/HCPCS: 93005 ×2; 99285; 36415; 93017; 85379; 83880; 80061; 80053; 82550; 83690; 83735; 84484; 85025; 85610; 85730; 83036; 71046; 71260; 78452; G0378 ×3; C8929; U0003; A9500; J2785; Q9950; Q9967; 93306

== ENCOUNTER → 2020-01-14 | Outpatient (CLI) | payer MEDICARE, BC ==
[2020-01-14 15:46] LABS: HCT 43.7 % (39.0-53.0); HGB 14.5 gm/dL (13.0-17.5); MCH 30.4 pg (25.0-35.0); MCHC 33.3 g/dL (31.0-37.0); MCV 91.4 fL (80.0-100.0); Mean Platelet Volume 8.2; Platelet Count 217 k/uL (150-450); RBC 4.78 m/uL (4.30-5.90); RDW 13.7 % (11.5-15.5); WBC 10.2 k/uL (3.8-10.6)
[2020-01-14 16:04] LABS: African American GFR (CKD) >90 (>60 ml/min/1.73 sqM); Anion Gap 6 mmol/L; Blood Urea Nitrogen 16 mg/dL (9-20); Carbon Dioxide 25 mmol/L (22-30); Chloride 107 mmol/L (98-107); Non-African American GFR(CKD) >90 (>60 ml/min/1.73 sqM); Potassium 4.3 mmol/L (3.5-5.1); Sodium 138 mmol/L (137-145)
== END | disposition home or self-care (01) ==
LOC: LABWHC1 15:01
PROVIDERS: ATTEND Internal Medicine Interventional Cardiology
DX: Z01.818 Encounter for other preprocedural examination (principal); I25.10 Atherosclerotic heart disease of native coronary artery without angina pectoris
CPT/HCPCS: 36415; 80051; 82565; 84520; 85027

== ENCOUNTER 2020-01-27 10:49 | Day surgery (SDC) | payer MEDICARE, BC ==
[2020-01-23 09:33] VITALS: BMI 28.3
[~2020-01-27 10:49] MED LIST changes: +ALPRAZolam 0.25 MG TAB PO PRN; +ALPRAZolam 0.5 MG TAB PO PRN; +ASPIRIN 325 MG TAB PO STA; +ATORVASTATIN 80 MG TAB PO STA; -LACTATED RINGERS 1,000 ML IV SCH; +NITROGLYCERIN SL TABS 0.4 MG TAB SUBLINGUAL PRN; +SODIUM CHLORIDE 0.9% 1,000 ML in EMPTY BAG 1 BAG IV ONE
[2020-01-27 11:45] LABS: Glucose,Whole Blood 118 mg/dL (75-99)
[2020-01-27] MEDS ORDERED: VERAPAMIL 2.5 MG/ML 2 ML AMP ONE (12:33)
[2020-01-27] MEDS ORDERED: LIDOCAINE 1% INJ 10MG/ML (20 ML MDV) ONE (12:33)
[2020-01-27] MEDS ORDERED: fentaNYL (PF) 50 MCG/ML 2 ML AMP ONE (12:46)
[2020-01-27] MEDS ORDERED: fentaNYL (PF) 50 MCG/ML 2 ML AMP IVP ONE (12:54)
[2020-01-27] MEDS ORDERED: MIDAZOLAM 2 MG/2 ML VIAL IVP ONE (12:54)
[2020-01-27] MEDS ORDERED: LIDOCAINE 1% INJ 10MG/ML (20 ML MDV) SQ ONE ×2 (12:54→13:02)
[2020-01-27] MEDS ORDERED: VERAPAMIL SYRINGE (5 MG/10 ML) INTRAARTER ONE ×2 (12:58→13:00)
[2020-01-27] MEDS ORDERED: HYDROmorphone 1 MG/ML 1 ML SYRINGE IVP ONE (13:02)
[2020-01-27] MEDS ORDERED: HEPARIN SODIUM 1,000 UN/ML (10ML VL) IV ONE (13:02)
[2020-01-27] MEDS ORDERED: HYDROmorphone 1 MG/ML 1 ML SYRINGE ONE (13:03)
[2020-01-27] MEDS: NITROGLYCERIN 1000MCG/10ML SYRINGE INTRACORON ONE ×2 (13:21→13:25)
[2020-01-27] MEDS ORDERED: CLOPIDOGREL 75 MG TAB ONE (13:23)
[2020-01-27] MEDS ORDERED: CLOPIDOGREL 75 MG TAB PO ONE (13:25)
[2020-01-27] MEDS ORDERED: IOPAMIDOL-370 125ML BTL INJ ONE (13:30)
[2020-01-27] MEDS ORDERED: HEPARIN SODIUM 1,000 UN/ML (10ML VL) ONE (13:31)
[2020-01-27] MEDS ORDERED: carisoprodoL 350 MG TAB PO PRN (13:35)
[2020-01-27] MEDS ORDERED: ALPRAZolam 0.5 MG TAB PO PRN (13:35)
[2020-01-27] MEDS ORDERED: oxyCODONE-APAP 7.5-325MG 1 EACH TAB PO PRN (13:35)
[2020-01-27] MEDS ORDERED: RX INFO: IV CONTRAST WAS GIVEN 1 EACH MISC MISCELLANE PRN (13:38)
[2020-01-27] MEDS ORDERED: ATROPINE SULFATE 0.1 MG/ML 10ML SYRINGE IV PRN (13:38)
[2020-01-27] MEDS ORDERED: MAG HYDROX/AL HYDROX/SIMETH 30 ML CUP PO PRN (13:38)
[2020-01-27] MEDS ORDERED: ZOLPIDEM 5 MG TAB PO PRN (13:38)
[2020-01-27] MEDS ORDERED: NITROGLYCERIN SL TABS 0.4 MG TAB SUBLINGUAL PRN (13:38)
[2020-01-27] MEDS ORDERED: SODIUM CHLORIDE 0.9% 1,000 ML IV SCH (13:45)
[2020-01-27] MEDS ORDERED: MAG HYDROX/AL HYDROX/SIMETH 30 ML CUP ONE (13:48)
--- NOTE | 2020-01-27 17:04 | CC ---
CARDIAC CATHETERIZATION REPORT DATE OF SERVICE: 01/27/2020. PERFORMING PHYSICIAN: John Maddox. PROCEDURE PERFORMED: 1. Selective right and left coronary angiogram. 2. Left heart catheterization. 3. Successful stenting of the mid right coronary artery using 2.75 x 12 mm Xience ESA with an excellent angiographic results. INDICATION: This is a pleasant 64-year-old gentleman who sees Dr. Dangelo in the office as an outpatient with history of atrial fibrillation, who underwent recently myocardial perfusion imaging stress test and that revealed prior inferior myocardial infarction. He underwent a Holter monitor which showed a run of nonsustained ventricular tachycardia. Because of that, a heart catheterization was advised. APPROACH: Right radial artery and right common femoral artery. COMPLICATION: None. LEVEL OF SEDATION: Moderate with sedation length of 35 minutes. PROCEDURE DESCRIPTION: After obtaining an informed consent, the patient was brought to the cardiac cathode builder. Initially, the right radial artery was cannulated using micropuncture technique. The micropuncture wire passed easily, then I placed a 6-[place] sheath. Subsequently, I could not advance any catheter from right radial approach due to severe pain in the right arm and because of that, I aborted the right radial approach and I went from the right groin. The right common femoral artery was cannulated using micropuncture technique, the micropuncture wire passed easily, then I placed a 6-[place] sheath at the right common femoral artery. Selective right and left coronary angiogram performed using JL4 and JR4 catheters. After that, I did intervene on the RCA, please see a separate paragraph for that. Left heart catheterization was performed using the JR4 catheter which crossed the aortic valve. SELECTIVE CORONARY ANGIOGRAM: 1. The right coronary artery is a medium to large caliber vessel and is a codominant vessel. The RCA is extremely calcified. The RCA has a lesion in midportion appeared to be in the range of 80%. The RCA distally bifurcates into PDA and PLV branches, both appeared to be angiographically normal. 2. The left main is angiographically normal, it bifurcates into left circumflex and left anterior descending artery. The left main is angiographically normal, it bifurcates into LCX and LAD. 3. The left circumflex is a large caliber vessel and it is a codominant vessel and appeared to be angiographically normal. In the very proximal portion, it gives rise into first OM branch which has mild disease in the midportion. The mid left circumflex is normal and gives rise in the second OM branch which seems to be normal and the circumflex distally bifurcates into PDA and PLV branches, both appeared to be angiographically normal. 4. The LAD is angiographically normal, it gives rise into first diagonal branch which seems to be angiographically normal. 5. HEMODYNAMICS: The LVEDP was 10 to 12 mmHg without significant gradient across the aortic valve. 6. PCI of the RCA: Anticoagulation was achieved with heparin. Subsequently, I did engage the RCA using JR4 guide with a side hole. I did wire it using a run-through wire. I did the PTCA ballooning using 2.5 x 12 mm balloon before I deployed 2.75 x 12 mm Xience ESA where the stent was positioned under fluoroscopy guidance and deployed under 14 atmospheres for 20 seconds. The following angiogram showed excellent angiographic results and the procedure was completed without any complication. CONCLUSION: 1. Severe disease involving heavily calcified right coronary artery. 2. Mild disease involving the left coronary system. 3. Normal left ventricular end-diastolic pressure. 4. Successful stenting of the mid right coronary artery as described above with an excellent angiographic results. POSTPROCEDURE MANAGEMENT: 1. Dual anti-platelet therapy. 2. Risk factor modifications. 3. Follow up with the patient. MMODL / IJN: [id number] /
[2020-01-27 20:24] LABS: Glucose,Whole Blood 94 mg/dL (75-99)
[2020-01-27] MEDS: GLIMEPIRIDE 4 MG TAB PO SCH (21:18)
[2020-01-27] MEDS: METOPROLOL SUCCINATE (ER) 100 MG TAB.ER.24H PO SCH (21:18)
[2020-01-27] MEDS: LISINOPRIL-HCTZ 20-12.5 MG 1 EACH TAB PO SCH (21:18)
[2020-01-28 06:16] LABS: Glucose,Whole Blood 87 mg/dL (75-99)
[2020-01-28 06:52] LABS: Basophils # (A) 0.1 k/uL (0-0.2); Basophils % (A) 1 %; Eosinophils # (A) 0.5 k/uL (0-0.7); Eosinophils % (A) 5 %; HCT 46.8 % (39.0-53.0); HGB 15.4 gm/dL (13.0-17.5); Lymphocytes # (A) 2.2 k/uL (1.0-4.8); Lymphocytes % (A) 25 %; MCH 30.2 pg (25.0-35.0); MCHC 32.9 g/dL (31.0-37.0); MCV 91.7 fL (80.0-100.0); Mean Platelet Volume 8.2; Monocytes # (A) 0.7 k/uL (0-1.0); Monocytes % (A) 7 %; Neutrophils # (A) 5.5 k/uL (1.3-7.7); Neutrophils % (A) 60 %; Platelet Count 222 k/uL (150-450); RDW 13.6 % (11.5-15.5)
[2020-01-28 07:15] LABS: African American GFR (CKD) >90 (>60 ml/min/1.73 sqM); Anion Gap 8 mmol/L; Blood Urea Nitrogen 14 mg/dL (9-20); Calcium 8.8 mg/dL (8.4-10.2); Carbon Dioxide 25 mmol/L (22-30); Chloride 106 mmol/L (98-107); Glucose 85 mg/dL (74-99); Non-African American GFR(CKD) >90 (>60 ml/min/1.73 sqM); Potassium 3.7 mmol/L (3.5-5.1); Sodium 139 mmol/L (137-145)
[2020-01-28] MEDS ORDERED: PANTOPRAZOLE 40 MG TABLET PO SCH (07:30)
[2020-01-28] MEDS ORDERED: CLOPIDOGREL 75 MG TAB PO SCH (09:00)
[2020-01-28] MEDS ORDERED: ASPIRIN 325 MG TAB PO SCH (09:00)
[2020-01-28] MEDS ORDERED: TADALAFIL 5 MG PO SCH (09:00)
[2020-01-28] MEDS: LISINOPRIL-HCTZ 20-12.5 MG 1 EACH TAB PO SCH (09:13)
[2020-01-28] MEDS: METOPROLOL SUCCINATE (ER) 100 MG TAB.ER.24H PO SCH (09:13)
[2020-01-28] MEDS: GLIMEPIRIDE 4 MG TAB PO SCH (09:17)
[2020-01-28 09:19] VITALS: BP 149/92; PULSE 90; RESP 16; TEMP 98.1
--- NOTE | 2020-01-28 09:25 | DS ---
DISCHARGE SUMMARY ADMISSION DATE: 01/27/2020 DISCHARGE DATE: 01/28/2020 BRIEF HISTORY: This is a 64-year-old gentleman who sees Dr. Dangelo in the office as an outpatient who scheduled yesterday to undergo a heart catheterization from right radial approach. We attempted the right radial approach, but the patient developed severe pain in the right arm so we could not advance the catheter across the elbow. Because of that, the right radial approach was aborted and the patient underwent a heart catheterization from right femoral approach. The heart catheterization revealed critical vessel with severe disease involving the mid right coronary artery which was extremely calcified. He underwent successful stenting of the right coronary artery with an excellent angiographic results and without any complication. The patient is going to be discharged home on anti-platelet as well as anticoagulation. I am going to stop the Eliquis and start the patient on Xarelto at 15 mg p.o. daily. The patient is going to follow up with Dr. Dangelo. MMEBEN / RACHELLE: [id number] /
[2020-01-28] MEDS ORDERED: ATORVASTATIN 20 MG TAB PO SCH (21:00)
== END 2020-01-28 10:23 ==
LOC: CATHCVL 10:49 → 3SCARD 13:28 → CATHCVL 01-28 10:23
PROVIDERS: ATTEND Internal Medicine Interventional Cardiology
DX: I25.10 Atherosclerotic heart disease of native coronary artery without angina pectoris (principal); I47.2 Ventricular tachycardia; I48.19 Other persistent atrial fibrillation; G47.30 Sleep apnea, unspecified; I48.92 Unspecified atrial flutter; I10 Essential (primary) hypertension; E78.00 Pure hypercholesterolemia, unspecified; E78.5 Hyperlipidemia, unspecified; E11.9 Type 2 diabetes mellitus without complications; Z79.01 Long term (current) use of anticoagulants; Z79.84 Long term (current) use of oral hypoglycemic drugs; Z79.899 Other long term (current) drug therapy; Z82.49 Family history of ischemic heart disease and other diseases of the circulatory system
CPT/HCPCS: 93458; 85347 ×2; 80048; 85025; C9600; C1887; C1725; C1769 ×5; C1894 ×2; C1874; J2250; J2001; J3010; J1644; J1170; Q9967

== ENCOUNTER → 2020-02-18 | Outpatient (CLI) | payer MEDICARE, BC ==
[2020-02-18 14:41] LABS: African American GFR (CKD) >90 (>60 ml/min/1.73 sqM); Blood Urea Nitrogen 20 mg/dL (9-20); Non-African American GFR(CKD) >90 (>60 ml/min/1.73 sqM)
[2020-02-18 14:49] LABS: HCT 47.5 % (39.0-53.0); HGB 15.4 gm/dL (13.0-17.5); MCH 29.5 pg (25.0-35.0); MCHC 32.3 g/dL (31.0-37.0); MCV 91.3 fL (80.0-100.0); Mean Platelet Volume 7.9; Platelet Count 242 k/uL (150-450); RBC 5.21 m/uL (4.30-5.90); RDW 13.4 % (11.5-15.5); WBC 10.4 k/uL (3.8-10.6)
== END | disposition home or self-care (01) ==
LOC: LABPAT 14:07
PROVIDERS: ATTEND Internal Medicine Cardiovascular Disease
DX: Z01.818 Encounter for other preprocedural examination (principal); I48.11 Longstanding persistent atrial fibrillation
CPT/HCPCS: 82565; 83735; 84520; 85027

== ENCOUNTER 2020-02-20 09:30 | Day surgery (SDC) | payer MEDICARE, BC ==
[2020-02-17 15:43] VITALS: BMI 27.8
[~2020-02-20 09:30] MED LIST changes: -ALPRAZolam 0.25 MG TAB PO PRN; -ALPRAZolam 0.5 MG TAB PO PRN; -ASPIRIN 325 MG TAB PO STA; -ATORVASTATIN 80 MG TAB PO STA; +LACTATED RINGERS 1,000 ML IV SCH; +LIDOCAINE 1% (10MG/ML) FOR IV START INTRADERMA PRN; -NITROGLYCERIN SL TABS 0.4 MG TAB SUBLINGUAL PRN; +SODIUM CHLORIDE 0.9% 1,000 ML IV SCH; -SODIUM CHLORIDE 0.9% 1,000 ML in EMPTY BAG 1 BAG IV ONE
[2020-02-20 09:57] LABS: Glucose,Whole Blood 165 mg/dL (75-99)
[2020-02-20 10:05] VITALS: RESP 16; TEMP 97.8
[2020-02-20] MEDS ORDERED: SODIUM CHLORIDE 0.9% 500 ML 500 ML IV ONE (10:05)
--- NOTE | 2020-02-20 11:26 | ECHOT ---
TRANSESOPHAGEAL ECHOCARDIOGRAM INDICATION: Persistent atrial fibrillation. PROCEDURE NOTE: After obtaining informed consent, transesophageal echocardiogram was performed in left lateral position using an Omni plane probe. Local and IV sedation were obtained by the secretary board of commissioners. 2D color Doppler evaluation and agitated saline contrast study were performed. FINDINGS: 1. There is no intracardiac thrombus within the left atrial appendage, left atrium, right atrium and right ventricle. 2. Left ventricle has normal size and systolic function. 3. Mitral valve is anatomically normal. There is mild to moderate central mitral regurgitation noted. Tricuspid valve shows mild tricuspid regurgitation. 4. Aortic valve is free of stenosis or regurgitation. 5. Interatrial septum: There is no evidence of [id number] shunt by color-flow Doppler or [id number]-hp-[id number] shunt by agitated saline contrast study. 6. Aorta shows mild atherosclerotic changes. CONCLUSIONS: 1. No intracardiac thrombus. 2. Mild to moderate mitral regurgitation. 3. The patient will proceed with cardioversion. MMODL / IJN: [id number] /
[2020-02-20 15:00] VITALS: BP 125/80; PULSE 90
--- NOTE | 2020-02-24 10:05 | CDI ---
Outpatient Documentation Clarification Form Date: CDS/Sergeant Of Officers Name: Phone: If any questions, call Fina Nair Bakery Machine Mechanic Supervisor at [phone] Patient Name: Account Number: Admit Date: Discharge Date: ATTENTION: The [facility] Coding Staff appreciate your assistance in clarifying documentation. Please respond to the clarification below the line at the bottom and electronically sign. The [facility] Coding staff will review the response and follow-up if needed. Please note: Queries are made part of the Legal Health Record. If you have any questions, please contact the Bakery Machine Mechanic Supervisor. Dear Dr. Dangelo, Please provide clarification as to the complete procedure performed. Procedure note documents Echocardiography transesophageal, real time wit image documentation 2D. Charges indicate that three components were performed. Please clarify which and if all of the components were performed: Echocardiography, transesophageal, real time with image documentation (2D) (with or without M-Mode recording) , including placement of probe image acquisition and report Doppler echocardiography, pulsed wave and/or continuous wave with spectral display Doppler [id number] color flow velocity mapping Thank you for your kind consideration. 2d color doppler without m mode MTDD
== END 2020-02-20 12:52 | disposition home or self-care (01) ==
LOC: CATHCVL 09:30
PROVIDERS: ATTEND Internal Medicine Cardiovascular Disease
DX: I08.1 Rheumatic disorders of both mitral and tricuspid valves (principal); I48.19 Other persistent atrial fibrillation; I25.10 Atherosclerotic heart disease of native coronary artery without angina pectoris; I10 Essential (primary) hypertension; Z95.5 Presence of coronary angioplasty implant and graft; E78.5 Hyperlipidemia, unspecified; E11.9 Type 2 diabetes mellitus without complications; Z82.49 Family history of ischemic heart disease and other diseases of the circulatory system; E78.00 Pure hypercholesterolemia, unspecified; Z87.19 Personal history of other diseases of the digestive system; Z79.01 Long term (current) use of anticoagulants; Z79.84 Long term (current) use of oral hypoglycemic drugs; Z79.02 Long term (current) use of antithrombotics/antiplatelets; Z79.899 Other long term (current) drug therapy
CPT/HCPCS: 92960; 93312; 93320; 93325

== ENCOUNTER → 2020-11-04 | Outpatient (CLI) | payer MEDICARE, BC ==
[2020-11-04 20:07] LABS: Basophils # (A) 0.08 X 10*3/uL (0.00-0.10); Basophils % (A) 0.8 %; Eosinophils # (A) 0.43 X 10*3/uL (0.04-0.35); Eosinophils % (A) 4.5 %; HGB 15.8 g/dL (13.0-17.0); Lymphocytes # (A) 2.65 X 10*3/uL (0.90-5.00); Lymphocytes % (A) 27.7 %; MCH 30.7 pg (27.0-32.0); MCHC 33.6 g/dL (32.0-37.0); MCV 91.3 fL (80.0-97.0); Mean Platelet Volume 11.5 fL (9.5-12.2); Monocytes # (A) 0.94 X 10*3/uL (0.20-1.00); Monocytes % (A) 9.8 %; Neutrophils # (A) 5.42 X 10*3/uL (1.80-7.70); Neutrophils % (A) 56.9 %; Platelet Count 237 X 10*3/uL (140-440); RBC 5.15 X 10*6/uL (4.40-5.60); RDW 13.7 % (11.5-14.5); WBC 9.55 X 10*3/uL (4.50-10.00)
[2020-11-04 21:42] LABS: Hemoglobin A1C 6.9 % (4.0-6.0)
[2020-11-04 22:34] LABS: African American GFR (CKD) 109.4 (60.0-200.0); Albumin 4.5 g/dL (3.80-4.90); Albumin/Globulin Ratio 1.67 (1.60-3.17); Anion Gap 9.8 mmol/L (4.00-12.00); BUN/Creat Ratio 21.25 Ratio (12.00-20.00); Carbon Dioxide 21.2 mmol/L (21.6-31.8); Chol/HDL Ratio 3.98; Globulin 2.7 g/dL (1.6-3.3); Magnesium 1.9 mg/dL (1.5-2.4); Non-African American GFR(CKD) 94.4 (60.0-200.0); Potassium 4.4 mmol/L (3.5-5.5); Total Bilirubin 0.5 mg/dL (0.2-1.2); Total Protein 7.2 g/dL (6.2-8.2)
[2020-11-04 22:46] LABS: Prostate Specific Antigen 0.3 ng/mL (0.0-4.5)
== END | disposition home or self-care (01) ==
LOC: LABWHC1 12:27
PROVIDERS: ATTEND Family Medicine
DX: Z00.00 Encounter for general adult medical examination without abnormal findings (principal); N40.0 Benign prostatic hyperplasia without lower urinary tract symptoms; F41.1 Generalized anxiety disorder; I48.91 Unspecified atrial fibrillation; E11.9 Type 2 diabetes mellitus without complications; E78.00 Pure hypercholesterolemia, unspecified; R53.83 Other fatigue
CPT/HCPCS: 36415; 80053; 80061; 83036; 83735; 84153; 84443; 85025

== ENCOUNTER → 2021-04-04 | Outpatient (CLI) | payer MEDICARE, BC ==
[2021-04-04 11:57] LABS: Appearance,Urine Clear (Clear); Bilirubin,Urine Negative (Negative); Blood,Urine Negative (Negative); Color,Urine Yellow; Glucose,Urine (UA) Negative (Negative); Ketones,Urine Negative (Negative); Leukocyte Esterase,Urine Negative (Negative); Nitrite,Urine Negative (Negative); Protein,Urine Negative (Negative); Specific Gravity,Urine 1.024 (1.001-1.035); Urobilinogen,Urine <2.0 mg/dL (<2.0)
[2021-04-04 15:12] LABS: Basophils # (A) 0.09 X 10*3/uL (0.00-0.10); Basophils % (A) 0.9 %; Eosinophils # (A) 0.47 X 10*3/uL (0.04-0.35); Eosinophils % (A) 4.9 %; HCT 47.8 % (39.6-50.0); HGB 16.2 g/dL (13.0-17.0); Lymphocytes # (A) 2.59 X 10*3/uL (0.90-5.00); MCH 30.7 pg (27.0-32.0); MCHC 33.9 g/dL (32.0-37.0); MCV 90.7 fL (80.0-97.0); Mean Platelet Volume 11.3 fL (9.5-12.2); Monocytes # (A) 0.83 X 10*3/uL (0.20-1.00); Monocytes % (A) 8.6 %; Neutrophils % (A) 58.3 %; Platelet Count 271 X 10*3/uL (140-440); RBC 5.27 X 10*6/uL (4.40-5.60); RDW 14.1 % (11.5-14.5); WBC 9.61 X 10*3/uL (4.50-10.00)
[2021-04-04 18:55] LABS: HIV 2 AB Non-Reactive (Non-Reactive); HIV AB P24 Non-Reactive (Non-Reactive); HIV P24 AG Non-Reactive (Non-Reactive)
[2021-04-04 19:43] LABS: Hepatitis A Antibody IgM Nonreactive (Nonreactive); Hepatitis B Core IgM Nonreactive (Nonreactive); Hepatitis C IgG Antibody Nonreactive (Nonreactive)
[2021-04-04 20:38] LABS: ALT 31 U/L (10-49); AST 21 U/L (14-35); Chol/HDL Ratio 4.57 Ratio; LDL Cholesterol,Calculated 91.7 mg/dL (0.0-131.0)
[2021-04-05 13:30] LABS: Hepatitis B Surface Antigen Nonreactive (Nonreactive)
[2021-04-05 15:24] LABS: C. trachomatis,PCR Negative (Neg,Equiv); Chlamydia trachomatis Source Urine; N. gonorrhoeae,PCR Negative (Neg,Equiv); Neisseria Source Urine
== END | disposition home or self-care (01) ==
LOC: LABWHC1 08:55
PROVIDERS: ATTEND Internal Medicine Cardiovascular Disease
DX: Z00.00 Encounter for general adult medical examination without abnormal findings (principal); R97.20 Elevated prostate specific antigen [PSA]; I48.91 Unspecified atrial fibrillation; E78.2 Mixed hyperlipidemia
CPT/HCPCS: 36415; 80061; 80074; 81003; 83036; 84153; 84443; 84450; 84460; 85025; 87390; 87491; 87591

== ENCOUNTER → 2021-11-18 | Outpatient (CLI) | payer MEDICARE, BC | END | disposition home or self-care (01) | LOC: RADCTMAIN 14:05 | PROVIDERS: ATTEND Family Medicine | DX: Z53.9 Procedure and treatment not carried out, unspecified reason (principal) ==

== ENCOUNTER → 2021-11-23 | Outpatient (CLI) | payer MEDICARE, BC ==
[2021-11-23 17:09] LABS: African American GFR (CKD) >90 (>60 ml/min/1.73 sqM); Blood Urea Nitrogen 17 mg/dL (9-20); Non-African American GFR(CKD) 86 (>60 ml/min/1.73 sqM)
--- NOTE | 2021-11-23 19:38 | CT ---
EXAMINATION TYPE: CT angio neck DATE OF EXAM: 11/23/2021 COMPARISON: None HISTORY: CAD CT DLP: 823.4 mGycm Automated exposure control for dose reduction was used. CONTRAST: Performed with IV Contrast, patient injected with 65ml mL of Isovue 370. Images obtained from the aortic arch to the vertex of the sella turcica with IV contrast. There are T hree-D postprocessed images. There is normal branching pattern of the great vessels of the aortic arch. There is bilateral arteria l flow in the subclavian arteries. There is arterial flow in the common internal and external carotid arteries bilaterally. There is arterial flow in both vertebral arteries. There is arterial flow in t he vertebrobasilar artery system. There is arterial flow in the distal internal carotid arteries at t ute of [place]. No evidence of carotid or vertebral artery aneurysm or dissection. There is mini mal calcification on the posterior wall of the proximal internal carotid arteries bilaterally. No ethan dence of any significant luminal narrowing. IMPRESSION: Negative CT angiogram of the neck. No evidence of any significant arterial stenosis.
== END | disposition home or self-care (01) ==
LOC: RADCTMAIN 16:18
PROVIDERS: ATTEND Family Medicine
DX: I25.10 Atherosclerotic heart disease of native coronary artery without angina pectoris (principal)
CPT/HCPCS: 82565; 84520; 70498; 36415; Q9967

== ENCOUNTER → 2022-03-07 | Outpatient (CLI) | payer MEDICARE, BC ==
[2022-03-07 18:17] LABS: Basophils # (A) 0.08 X 10*3/uL (0.00-0.10); Basophils % (A) 0.9 %; Eosinophils # (A) 0.39 X 10*3/uL (0.04-0.35); Eosinophils % (A) 4.5 %; HCT 43.9 % (39.6-50.0); HGB 15.2 g/dL (13.0-17.0); Immature Grans, Automated 0.3 %; Lymphocytes # (A) 2.34 X 10*3/uL (0.90-5.00); Lymphocytes % (A) 26.8 %; MCH 30.4 pg (27.0-32.0); MCHC 34.6 g/dL (32.0-37.0); MCV 87.8 fL (80.0-97.0); Mean Platelet Volume 11.7 fL (9.5-12.2); Monocytes # (A) 0.84 X 10*3/uL (0.20-1.00); Monocytes % (A) 9.6 %; NRBC Per 100 WBC 0 /100 WBCS (0.0-0.0); Neutrophils # (A) 5.05 X 10*3/uL (1.80-7.70); Neutrophils % (A) 57.9 %; Platelet Count 243 X 10*3/uL (140-440); RDW 13.2 % (11.5-14.5); WBC 8.73 X 10*3/uL (4.50-10.00)
[2022-03-07 18:34] LABS: ALT 34 U/L (10-49); AST 28 U/L (14-35); African American GFR (CKD) 103.5 (60.0-200.0); Albumin 4.3 g/dL (3.8-4.9); Albumin/Globulin Ratio 1.55 (1.60-3.17); Alkaline Phosphatase 77 U/L (41-126); BUN/Creat Ratio 16.78 Ratio (12.00-20.00); Blood Urea Nitrogen 15.1 mg/dL (9.0-27.0); Calcium 9.5 mg/dL (8.7-10.3); Carbon Dioxide 24.8 mmol/L (20.0-27.5); Chloride 101 mmol/L (96-109); Chol/HDL Ratio 3.43 Ratio; Globulin 2.8 g/dL (1.6-3.3); Glucose 201 mg/dL (70-110); Non-African American GFR(CKD) 89.3 (60.0-200.0); Potassium 4.7 mmol/L (3.5-5.5); Sodium 135 mmol/L (135-145); Total Protein 7.1 g/dL (6.2-8.2)
== END | disposition home or self-care (01) ==
LOC: LABWHC1 03-06 13:03
PROVIDERS: ATTEND Family Medicine
DX: I10 Essential (primary) hypertension (principal); E11.9 Type 2 diabetes mellitus without complications; Z79.899 Other long term (current) drug therapy; R97.20 Elevated prostate specific antigen [PSA]
CPT/HCPCS: 36415; 80053; 80061; 83036; 84153; 84443; 85025

== ENCOUNTER → 2022-03-17 | Outpatient (CLI) | payer MEDICARE, BC ==
[2022-03-17 16:07] LABS: African American GFR (CKD) >90 (>60 ml/min/1.73 sqM); Blood Urea Nitrogen 16 mg/dL (9-20); Non-African American GFR(CKD) >90 (>60 ml/min/1.73 sqM)
--- NOTE | 2022-03-19 15:06 | CT ---
EXAMINATION TYPE: CT soft tissue neck w con DATE OF EXAM: 03/17/2022 COMPARISON: 11/23/2021 HISTORY: Rt side face and neck numbness CT DLP: 682.4 mGycm CONTRAST: Patient injected with 70cc mL of Isovue 300. TECHNIQUE: Axial images at 3 mm thick sections. Reconstructed images in the coronal plane and sagitt al plane are reviewed. FINDINGS: Limited CT sections are obtained the lung apices. The lung apices appear clear. CT neck: The torus tubarius and fossa of Rosenmuller are normal. Machine Ii Coremaker spaces are normal. Para nasal sinuses and mastoid air cells are clear. Parotid glands appear normal and symmetrical. Submandibular glands, are normal. Parapharyngeal spac es are normal. No suspicious adenopathy is evident. The hypopharynx appears within normal limits. Vocal cord level appear symmetrical. Thyroid as visualized is normal. There is uncovertebral joint hypertrophy contributing to foraminal narrowing. Correlate for cervical spine with symptoms. MRI of the cervical spine performed as clinically indicated. IMPRESSIONS: 1. No suspicious acute changes to account for right face numbness. 2. Consider MRI cervical spine there are cervical radicular symptoms.
== END | disposition home or self-care (01) ==
LOC: RADCTMAIN 15:18
PROVIDERS: ATTEND Family Medicine
DX: M26.603 Bilateral temporomandibular joint disorder, unspecified (principal)
CPT/HCPCS: 82565; 84520; 70491; 36415; Q9967

== ENCOUNTER 2022-04-21 07:27 | Day surgery (SDC) | payer MEDICARE, BC ==
[2022-04-19 11:29] VITALS: BMI 27.6
[~2022-04-21 07:27] MED LIST changes: -LIDOCAINE 1% (10MG/ML) FOR IV START INTRADERMA PRN; -SODIUM CHLORIDE 0.9% 1,000 ML IV SCH
[2022-04-21 08:10] VITALS: TEMP 97.7
[2022-04-21 08:13] LABS: Glucose,Whole Blood 142 mg/dL (70-110)
[2022-04-21] MEDS ORDERED: PROPOFOL 10 MG/ML 20 ML VIAL IV ONE (08:57)
--- NOTE | 2022-04-21 09:18 | P.PCN ---
Date of Procedure: 04/21/22 Procedure(s) Performed: BRIEF HISTORY: Patient is a 66-year-old pleasant white male scheduled for an elective colonoscopy as a part of screening for colon cancer and history of colon polyps. His last colonoscopy was 5 years ago. Patient has been complaining of intermittent diarrhea for the last 1 year duration. PROCEDURE PERFORMED: Colonoscopy with biopsy PREOPERATIVE DIAGNOSIS: Screening for colon cancer/history of colon polyps/chronic diarrhea. IV sedation per Anesthesia. PROCEDURE: After informed consent was obtained, the patient, was brought into the endoscopy unit. IV sedation was administered by Anesthesia under continuous monitoring. Digital rectal examination was normal. Initially the Olympus CF-160 flexible video colonoscope was then inserted in the rectum, gradually advanced into the cecum without any difficulty. Careful examination was performed as the scope was gradually being withdrawn. Ileocecal valve and the appendiceal orifice were visualized and appeared normal. Prep was excellent. Mucosa of the cecum, ascending colon appeared normal. In the hepatic flexure there was a 3-4 mm polyp that was removed by cold biopsy. Rest of the transverse colon, descending colon, sigmoid colon, and rectum appeared normal. Random biopsies were done from ascending and descending colon to rule out metastatic/collagenous colitis. Retroflexion was performed in the rectum and no lesions were seen. The patient tolerated the procedure well. IMPRESSION: 3-4 mm hepatic flexure polyp status post cold biopsy Rest of the colon appeared normal RECOMMENDATIONS: Findings of this examination were discussed with the patient as well as his family. He was advised to follow with the biopsy results. If the biopsy is adenoma he can have a repeat colonoscopy in 5 years. In regards to the first bowel movement she was advised to take [id number] Imodium as needed..
[2022-04-21 09:36] VITALS: BP 100/59; PULSE 63; RESP 15
== END 2022-04-21 10:00 | disposition home or self-care (01) ==
LOC: ORWHC2ENDO 07:27
PROVIDERS: ATTEND Internal Medicine Gastroenterology
DX: Z12.11 Encounter for screening for malignant neoplasm of colon (principal); D12.2 Benign neoplasm of ascending colon; D12.7 Benign neoplasm of rectosigmoid junction; I25.10 Atherosclerotic heart disease of native coronary artery without angina pectoris; I10 Essential (primary) hypertension; E78.5 Hyperlipidemia, unspecified; G47.33 Obstructive sleep apnea (adult) (pediatric); J45.909 Unspecified asthma, uncomplicated; K21.9 Gastro-esophageal reflux disease without esophagitis; Z79.899 Other long term (current) drug therapy; Z86.010 Personal history of colon polyps
CPT/HCPCS: 88305; 45380; J2704

== ENCOUNTER → 2022-10-13 | Outpatient (CLI) | payer MEDICARE, BC ==
[2022-10-13 20:25] LABS: Appearance,Urine Clear (Clear); Bilirubin,Urine Negative (Negative); Blood,Urine Negative (Negative); Color,Urine Yellow (Yellow); Ketones,Urine Negative (Negative); Nitrite,Urine Negative (Negative); Urobilinogen,Urine 0.2 (0.2,1.0)
[2022-10-13 20:45] LABS: ALT 36 U/L (10-49); AST 25 U/L (14-35); African American GFR (CKD) 102.8 (60.0-200.0); Albumin 4.3 g/dL (3.8-4.9); Albumin/Globulin Ratio 1.72 (1.60-3.17); Alkaline Phosphatase 72 U/L (41-126); BUN/Creat Ratio 12.89 Ratio (12.00-20.00); Blood Urea Nitrogen 11.6 mg/dL (9.0-27.0); Calcium 9.3 mg/dL (8.7-10.3); Carbon Dioxide 24.4 mmol/L (20.0-27.5); Chloride 104 mmol/L (96-109); Chol/HDL Ratio 3.79 Ratio; Globulin 2.5 g/dL (1.6-3.3); Glucose 136 mg/dL (70-110); LDL Cholesterol,Calculated 82.5 mg/dL (0.0-131.0); Non-African American GFR(CKD) 88.7 (60.0-200.0); Potassium 4.4 mmol/L (3.5-5.5); Sodium 141 mmol/L (135-145); Total Protein 6.8 g/dL (6.2-8.2)
== END | disposition home or self-care (01) ==
LOC: LABWHC1 11:06
PROVIDERS: ATTEND Family Medicine
DX: Z00.00 Encounter for general adult medical examination without abnormal findings (principal); I10 Essential (primary) hypertension; I48.91 Unspecified atrial fibrillation; R97.20 Elevated prostate specific antigen [PSA]; Z79.899 Other long term (current) drug therapy
CPT/HCPCS: 36415; 80053; 80061; 81003; 83036; 84153; 84403; 84443

== ENCOUNTER → 2022-10-27 | Outpatient (CLI) | payer MEDICARE, BC ==
--- NOTE | 2022-10-27 14:34 | US ---
EXAMINATION TYPE: US scrotum with doppler. Grayscale and color Doppler Duplex imaging performed of sherie barroso scrotum. DATE OF EXAM: 10/27/2022 COMPARISON: NONE CLINICAL INDICATION: Male, 67 years old with history of N50.82 SCROTAL PAIN; EXAM MEASUREMENTS: TESTICLES: Right Testicle: 4.2 x 1.9 x 2.8 cm small hypoechoic lesion measuring 1 mm within the testis. Corresp onds with vessel per rope cutter. Left Testicle: 3.9 x 1.9 x 2.6 cm EPIDIDYMIS HEAD: Right Epididymis: 1.0 x 0.9 cm, cyst measures 0.5 x 0.4 cm. Left Epididymis: 1.4 x .9 cm, two cysts. Measuring 0.6 x 0.5 cm and 0.5 x 0.5 cm. Doppler performed to assess for testicular vascularity; good bilateral color flow and waveforms are s een. There is no evidence of testicular torsion. Presence of hydroceles: small amount of fluid around left testicle. Presence of varicoceles: not appreciated. IMPRESSION: 1. Appropriate arterial and venous spectral waveforms to the testes. 2. Trace left hydrocele. 3. Symmetric color Doppler flow to the testes.
== END | disposition home or self-care (01) ==
LOC: RADUSWWP 12:02
PROVIDERS: ATTEND Family Medicine
DX: N43.3 Hydrocele, unspecified (principal); N50.82 Scrotal pain
CPT/HCPCS: 76870; 93975

== ENCOUNTER → 2023-04-02 | Outpatient (CLI) | payer MEDICARE, BC ==
[2023-04-02 16:52] LABS: HCT 46.5 % (39.6-50.0); HGB 15.6 g/dL (13.0-17.0); MCH 30.1 pg (27.0-32.0); MCHC 33.5 g/dL (32.0-37.0); MCV 89.8 FL (80.0-97.0); NRBC Per 100 WBC 0 X 10*3/uL (0.00-0.01); Platelet Count 204 X 10*3/uL (140-440); RBC 5.18 X 10*6/uL (4.40-5.60); RDW 13.5 % (11.5-14.5); WBC 8.91 X 10*3/uL (4.50-10.00)
[2023-04-02 18:22] LABS: ALT 24 U/L (10-49); AST 19 U/L (14-35); Albumin 4.4 g/dL (3.8-4.9); Albumin/Globulin Ratio 1.57 Ratio (1.60-3.17); Alkaline Phosphatase 73 U/L (41-126); Blood Urea Nitrogen 12.6 mg/dL (9.0-27.0); Calcium 9.7 mg/dL (8.7-10.3); Carbon Dioxide 21.7 mmol/L (21.6-31.8); Chloride 103 mmol/L (96-109); Globulin 2.8 g/dL (1.6-3.3); Glucose 181 mg/dL (70-110); LDL Cholesterol,Calculated 83.9 mg/dL (0.0-131.0); Potassium 4.4 mmol/L (3.5-5.5); Prostate Specific Antigen 0.33 ng/mL (0.000-4.500); Sodium 138 mmol/L (135-145); Total Bilirubin 0.4 mg/dL (0.3-1.2); Total Protein 7.2 g/dL (6.2-8.2)
== END | disposition home or self-care (01) ==
LOC: LABWHC1 10:26
PROVIDERS: ATTEND Family Medicine
DX: I10 Essential (primary) hypertension (principal); B89 Unspecified parasitic disease; E78.2 Mixed hyperlipidemia; Z79.899 Other long term (current) drug therapy
CPT/HCPCS: 36415; 80053; 80061; 83036; 84153; 84403; 84443; 85027

== ENCOUNTER → 2023-11-12 | Outpatient (CLI) | payer MEDICARE, BC ==
[2023-11-12 18:46] LABS: Appearance,Urine Clear (Clear); Bilirubin,Urine Negative (Negative); Blood,Urine Negative (Negative); Color,Urine Yellow (Yellow); Ketones,Urine Negative (Negative); Nitrite,Urine Negative (Negative); Specific Gravity,Urine 1.022 (1.001-1.030); Urobilinogen,Urine 0.2 E.U./DL
[2023-11-12 19:18] LABS: Basophils # (A) 0.07 X 10*3/uL (0.00-0.10); Basophils % (A) 0.8 %; Eosinophils # (A) 0.42 X 10*3/uL (0.04-0.35); Eosinophils % (A) 4.8 %; HCT 45.1 % (39.6-50.0); HGB 15.2 g/dL (13.0-17.0); Lymphocytes # (A) 2.12 X 10*3/uL (0.90-5.00); Lymphocytes % (A) 24.2 %; MCH 30.7 pg (27.0-32.0); MCHC 33.7 g/dL (32.0-37.0); MCV 91.1 FL (80.0-97.0); Mean Platelet Volume 11.7 FL (9.5-12.2); Monocytes # (A) 0.81 X 10*3/uL (0.20-1.00); Monocytes % (A) 9.3 %; NRBC Per 100 WBC 0 X 10*3/uL (0.00-0.01); Neutrophils # (A) 5.31 X 10*3/uL (1.80-7.70); Neutrophils % (A) 60.7 %; Platelet Count 223 X 10*3/uL (140-440); RBC 4.95 X 10*6/uL (4.40-5.60); RDW 13.4 % (11.5-14.5); WBC 8.75 X 10*3/uL (4.50-10.00)
[2023-11-12 19:52] LABS: ALT 31 U/L (10-49); AST 26 U/L (14-35); Albumin 4.5 g/dL (3.8-4.9); Alkaline Phosphatase 84 U/L (41-126); Blood Urea Nitrogen 19.1 mg/dL (9.0-27.0); Calcium 9.8 mg/dL (8.7-10.3); Carbon Dioxide 23.6 mmol/L (21.6-31.8); Chloride 99 mmol/L (96-109); Chol/HDL Ratio 2.57 Ratio; Globulin 2.5 g/dL (1.6-3.3); Glucose 177 mg/dL (70-110); LDL Cholesterol,Calculated 34.5 mg/dL (0.0-131.0); Potassium 4.5 mmol/L (3.5-5.5); Prostate Specific Antigen 0.28 ng/mL (0.000-4.500); Sodium 135 mmol/L (135-145); Total Bilirubin 0.6 mg/dL (0.3-1.2)
== END | disposition home or self-care (01) ==
LOC: LABWHC1 11:45
PROVIDERS: ATTEND Family Medicine
DX: E78.2 Mixed hyperlipidemia (principal); I10 Essential (primary) hypertension; R97.20 Elevated prostate specific antigen [PSA]; Z79.899 Other long term (current) drug therapy
CPT/HCPCS: 36415; 80053; 80061; 81003; 83036; 84153; 84403; 85025

== ENCOUNTER → 2023-12-04 | Outpatient (CLI) | payer MEDICARE, BC ==
--- NOTE | 2023-12-04 21:29 | US ---
EXAMINATION TYPE: US arterial LE single level DATE OF EXAM: 12/04/2023 2:22 PM CLINICAL INDICATION: Male, 68 years old with history of I70.213 EXTRM W INTRMT BENJAMÍN, BI LEGS; Cold f eet, hx cardiac stent History of: Hypertension: Yes Diabetic: Yes Hyperlipidemia: Yes TIA/CVA: No Previous Vascular Surgery: Cardiac stent NE: No Vascular Ulcers: No Claudication: Yes Gangrene: No Doppler Waveforms: Right: Left: Pulse Volume Recording: Pressure Gradients: Right Brachial Pressure: 115 Left Brachial Pressure: 113 Ankle-Brachial Indices: Right: 1.32 Left: 1.33 (Vessel hardening > 1.4; Normal 0.9 - 1.4, Moderate 0.7 - 0.9, Severe 0.5-0.7) Toe Brachial Indices: Right: 0.63 Left: 0.81 IMPRESSION: 1. Severe stenosis within the right distal digital artery and moderate stenosis within the distal lef t digital artery
== END | disposition home or self-care (01) ==
LOC: RADUSWWP 13:53
PROVIDERS: ATTEND Family Medicine
DX: I70.213 Atherosclerosis of native arteries of extremities with intermittent claudication, bilateral legs (principal); I77.1 Stricture of artery
CPT/HCPCS: 93922

== ENCOUNTER → 2024-01-11 | Outpatient (CLI) | payer MEDICARE, BC | END | disposition home or self-care (01) | LOC: LABPRL 12:00 | PROVIDERS: ATTEND Urology | DX: D35.00 Benign neoplasm of unspecified adrenal gland (principal) | CPT/HCPCS: 83835 ==

== ENCOUNTER → 2024-02-29 | Outpatient (CLI) | payer MEDICARE, BC ==
[2024-02-29 15:23] LABS: ALT 67 U/L (10-49); AST 43 U/L (14-35); Blood Urea Nitrogen 15.6 mg/dL (9.0-27.0); Carbon Dioxide 24.7 mmol/L (21.6-31.8); Chloride 101 mmol/L (96-109); Chol/HDL Ratio 2.87 Ratio; LDL Cholesterol,Calculated 60.3 mg/dL (0.0-131.0); Potassium 5.5 mmol/L (3.5-5.5); Prostate Specific Antigen 0.29 ng/mL (0.000-4.500); Sodium 136 mmol/L (135-145)
[2024-02-29 15:30] LABS: Appearance,Urine Clear (Clear); Bilirubin,Urine Negative (Negative); Blood,Urine Negative (Negative); Color,Urine Yellow (Yellow); Ketones,Urine Negative (Negative); Nitrite,Urine Negative (Negative); PH, Urine 5.5; Urobilinogen,Urine 0.2 E.U./DL
[2024-02-29 15:37] LABS: Bacteria,Urine None Seen (None Seen)
[2024-02-29 19:13] LABS: Microalbumin Creatinine Ratio <11 mg/g Cr (0-30)
== END | disposition home or self-care (01) ==
LOC: LABWHC1 09:15
PROVIDERS: ATTEND Internal Medicine Cardiovascular Disease
CPT/HCPCS: 36415; 80051; 80061; 81001; 82043; 82533; 82565; 82570; 83036; 83835; 84153; 84450; 84460; 84520

== ENCOUNTER → 2024-04-10 | Outpatient (CLI) | payer MEDICARE, BC ==
[2024-04-10 16:01] LABS: ALT 39 U/L (10-49); AST 22 U/L (14-35)
== END | disposition home or self-care (01) ==
LOC: LABWHC1 08:16
PROVIDERS: ATTEND Internal Medicine Interventional Cardiology
DX: D35.00 Benign neoplasm of unspecified adrenal gland (principal); E78.2 Mixed hyperlipidemia
CPT/HCPCS: 36415; 83835; 84450; 84460

== ENCOUNTER → 2024-11-04 | Outpatient (CLI) | payer MEDICARE, BC ==
[2024-11-04 15:09] LABS: Basophils # (A) 0.12 X 10*3/uL (0.00-0.10); Basophils % (A) 1.3 %; Eosinophils # (A) 0.65 X 10*3/uL (0.04-0.35); Eosinophils % (A) 7.2 %; HCT 44.2 % (39.6-50.0); HGB 14.6 g/dL (13.0-17.0); Lymphocytes # (A) 2.53 X 10*3/uL (0.90-5.00); Lymphocytes % (A) 27.8 %; MCH 29.7 pg (27.0-32.0); MCV 89.8 FL (80.0-97.0); Mean Platelet Volume 10.9 FL (9.5-12.2); Monocytes # (A) 0.91 X 10*3/uL (0.20-1.00); NRBC Per 100 WBC 0 X 10*3/uL (0.00-0.01); Neutrophils # (A) 4.84 X 10*3/uL (1.80-7.70); Neutrophils % (A) 53.3 %; Platelet Count 229 X 10*3/uL (140-440); RBC 4.92 X 10*6/uL (4.40-5.60); RDW 14.1 % (11.5-14.5); WBC 9.09 X 10*3/uL (4.50-10.00)
[2024-11-04 15:46] LABS: C Reactive Protein <0.30 mg/dL (0.00-0.80); Chol/HDL Ratio 2.83 Ratio
[2024-11-04 15:47] LABS: ALT 37 U/L (10-49); AST 26 U/L (14-35); Albumin 4.1 g/dL (3.8-4.9); Albumin/Globulin Ratio 1.58 Ratio (1.60-3.17); Alkaline Phosphatase 68 U/L (41-126); Blood Urea Nitrogen 19.8 mg/dL (9.0-27.0); Calcium 9.1 mg/dL (8.7-10.3); Carbon Dioxide 22.4 mmol/L (21.6-31.8); Chloride 104 mmol/L (96-109); Globulin 2.6 g/dL (1.6-3.3); Glucose 178 mg/dL (70-110); Potassium 4.4 mmol/L (3.5-5.5); Sodium 138 mmol/L (135-145); Total Bilirubin 0.4 mg/dL (0.3-1.2); Total Protein 6.7 g/dL (6.2-8.2)
[2024-11-04 20:33] LABS: Microalbumin Creatinine Ratio <8 mg/g Cr (0-30)
[2024-11-04 20:44] LABS: Appearance,Urine Clear (Clear); Bilirubin,Urine Negative (Negative); Blood,Urine Negative (Negative); Color,Urine Yellow (Yellow); Ketones,Urine Negative (Negative); Nitrite,Urine Negative (Negative); PH, Urine 5.5; Urobilinogen,Urine 0.2 E.U./DL
== END | disposition home or self-care (01) ==
LOC: LABWHC1 11:01
PROVIDERS: ATTEND Family Medicine
DX: E78.2 Mixed hyperlipidemia (principal); Z79.899 Other long term (current) drug therapy; I10 Essential (primary) hypertension; E11.9 Type 2 diabetes mellitus without complications; R97.20 Elevated prostate specific antigen [PSA]
CPT/HCPCS: 36415; 80053; 80061; 81003; 82043; 82570; 83036; 84153; 84443; 85025; 86140